=== PATIENT | male | born 1935 | race Caucasian/White ===

== ENCOUNTER 2020-09-21 02:52 | Inpatient (IN) | payer MEDICARE, OTHER ==
[~2020-09-21] VITALS: Ht 160 cm; Wt 75.5 kg
--- NOTE | 2020-09-21 03:01 | NUR ---
PT AAOX1. AZERI SPEAKING. BIBEMS FROM [facility] C/O LOW O2 SAT 75% PER EMS REPORT. PT WAS PALCED ON NON ADAMARIS 10L, SAT 94%. PLACED IN BED 18 ON MONITOR AND PULSE OX. AWAITING MD FOR EVAL AND ORDERS.
[2020-09-21] MEDS ORDERED: LIDOCAINE 2% JEL UROJET 10 ML MM ONE (03:05)
--- NOTE | 2020-09-21 03:11 | NUR ---
LINE ESTABLISHED LAC 20G, BLOOD COLLECTED, SENT TO LAB.
--- NOTE | 2020-09-21 03:14 | NUR ---
YIID SWABBED, SENT TO LAB.
--- NOTE | 2020-09-21 03:15 | NUR ---
URINE COLLECTED, SENT TO LAB.
[2020-09-21] MEDS ORDERED: AZITHROMYCIN 500 MG in IV D5W 250 ML IV ONE (03:30)
[2020-09-21] MEDS ORDERED: CEFTRIAXONE 1GM BAG (ER ONLY) 1 GM/50 ML PIGGYBACK IV ONE (03:30)
[2020-09-21] MEDS ORDERED: AZITHROMYCIN 500 MG VIAL ONE (03:41)
[2020-09-21] MEDS ORDERED: CEFTRIAXONE 1GM BAG (ER ONLY) 50 ML IV ONE (03:41)
[2020-09-21 03:46] LABS: BASOPHILS % (AUTO) 0.2 % (0.0-2.0); HEMATOCRIT 24 % (39-51); HEMOGLOBIN 8.2 g/dL (13.5-17.5); LYMPHOCYTES # (AUTO) 0.2 /CMM (0.8-4.8); LYMPHOCYTES % (AUTO) 3.8 % (20.0-44.0); MEAN CORPUSCULAR HGB CONC 34 g/dl (31.0-36.0); MEAN CORPUSCULAR VOLUME 89 fL (80-96); MONOCYTES # (AUTO) 0.4 /CMM (0.1-1.30); MONOCYTES % (AUTO) 6.2 % (2.0-12.0); NEUTROPHILS # (AUTO) 5.6 /CMM (1.8-8.9); NEUTROPHILS % (AUTO) 89.8 % (43.0-81.0); PLATELET COUNT (AUTO) 102 /CMM (150-450); RED BLOOD CELL COUNT(AUTO) 2.72 MIL/uL (4.5-6.0); WHITE BLOOD COUNT (AUTO) 6.2 K/uL (4.3-11.0)
[2020-09-21 04:09] LABS: ALANINE AMINOTRANSFERASE 109 U/L (12-78); ALBUMIN 2.5 g/dL (3.4-5.0); ALKALINE PHOSPHATASE 110 U/L (46-116); ASPARTATE AMINOTRANSFERASE 177 U/L (15-37); B-TYPE NATRIURETIC PEPTIDE 2142 PG/ML (0-125); BILIRUBIN,DIRECT 0.2 mg/dL (0.0-0.2); BILIRUBIN,TOTAL 0.3 mg/dL (0.2-1.0); CALCIUM, SERUM 7.8 mg/dL (8.5-10.1); CARBON DIOXIDE 19 mmol/L (21-32); CHLORIDE 110 mmol/L (98-107); CREATININE 3.1 mg/dL (0.6-1.3); GLUCOSE 164 mg/dL (74-106); POTASSIUM 4.2 mmol/L (3.5-5.1); SODIUM SERUM 143 mmol/L (136-145); TOTAL PROTEIN, SERUM 6.3 g/dL (6.4-8.2)
[2020-09-21 04:11] LABS: UREA NITROGEN, BLOOD 83 mg/dL (7-18)
[2020-09-21] MEDS ORDERED: ASPIRIN 300 MG/SUPP.RECT RC ONE ×2 (04:11→04:30)
--- NOTE | 2020-09-21 04:20 | NUR ---
Call from lab. Rapid covid positive.
--- NOTE | 2020-09-21 04:33 | NUR ---
PT PLACED ON 4L NC, SAT 93%.
--- NOTE | 2020-09-21 05:11 | NUR ---
PT RESTING COMFORTBALY.
[2020-09-21] MEDS ORDERED: ACETAMINOPHEN 325 MG TABLET PO PRN (05:30)
[2020-09-21] MEDS ORDERED: ALBUTEROL SULFATE 8 GM HFA.AER.AD IH PRN (05:30)
[2020-09-21] MEDS ORDERED: ONDANSETRON HCL/PF 4 MG/2 ML VIAL IVP PRN (05:30)
[2020-09-21 05:58] LABS: BILIRUBIN,URINE NEGATIVE (NEGATIVE); COLOR,URINE YELLOW (YELLOW); LEUKOCYTE ESTERASE ,URINE NEGATIVE (NEGATIVE); NITRITE, URINE NEGATIVE (NEGATIVE); PH,URINE 5.5 (5.0-8.0); PROTEIN,URINE 100 mg/dl (NEGATIVE); UGLUCOSE NEGATIVE (NEGATIVE); UROBILINOGEN,URINE 0.2 EU/dL (0.2)
[2020-09-21 06:40] LABS: BACTERIA,URINE Moderate /HPF (None Seen); SQUAMOUS EPITHELIAL CELL,UR Few /HPF (None Seen); URINE AMORPHOUS URATE Many /HPF (None Seen)
--- NOTE | 2020-09-21 07:11 | NUR ---
PT REMAINS ASLEEP, VSS.
[2020-09-21 08:53] LABS: C-REACTIVE PROTEIN 10.6 mg/dL (0.0-0.9)
--- NOTE | 2020-09-21 09:12 | NUR ---
PATIENT IN BED ASLEEP, EASILY AROUSABLE BY VOICE. HOOKED TO MONITOR. VSS. WILL CONTINUE TO MONITOR ACCORDINGLY
[2020-09-21] MEDS ORDERED: PRED20TA PO (09:31)
[2020-09-21] MEDS ORDERED: BISA10SU61 RC (09:31)
[2020-09-21] MEDS ORDERED: INSU100I26 SQ (09:31)
[2020-09-21] MEDS ORDERED: TAMS-12 PO (09:31)
[2020-09-21] MEDS ORDERED: DOCU-141 PO (09:31)
[2020-09-21] MEDS ORDERED: INSU100I4 SQ (09:31)
[2020-09-21] MEDS ORDERED: NA P133E RC (09:31)
[2020-09-21] MEDS ORDERED: HEPA1DIS12 SUBCUT (09:31)
[2020-09-21] MEDS ORDERED: POLY17PO4 PO (09:31)
[2020-09-21] MEDS ORDERED: CYAN-51 PO (09:31)
[2020-09-21] MEDS ORDERED: ACET325T53 PO (09:31)
[2020-09-21] MEDS ORDERED: ERGO500040 PO (09:31)
[2020-09-21] MEDS ORDERED: AMLO5TAB4 PO (09:31)
[2020-09-21] MEDS ORDERED: ASPI-1169 PO (09:31)
[2020-09-21] MEDS ORDERED: ATOR80TA PO (09:31)
[2020-09-21] MEDS ORDERED: FEBU40TA3 PO (09:31)
[2020-09-21] MEDS ORDERED: LIPA1CAP31 PO (09:31)
[2020-09-21 09:59] LABS: ALANINE AMINOTRANSFERASE 134 U/L (12-78); ALBUMIN 2.4 g/dL (3.4-5.0); ALKALINE PHOSPHATASE 114 U/L (46-116); ASPARTATE AMINOTRANSFERASE 193 U/L (15-37); BILIRUBIN,TOTAL 0.3 mg/dL (0.2-1.0); CARBON DIOXIDE 17 mmol/L (21-32); CHLORIDE 111 mmol/L (98-107); CREATININE 3.1 mg/dL (0.6-1.3); GLUCOSE 160 mg/dL (74-106); MAGNESIUM 2.2 mg/dL (1.8-2.4); PHOSPHORUS 5.5 mg/dL (2.5-4.9); POTASSIUM 4.2 mmol/L (3.5-5.1); SODIUM SERUM 144 mmol/L (136-145); TOTAL PROTEIN, SERUM 6.1 g/dL (6.4-8.2)
[2020-09-21 10:04] LABS: IRON, SERUM 14 ug/dl (50-175); TOTAL IRON BINDING CAPACITY 149 ug/dl (250-450)
[2020-09-21 10:11] LABS: UREA NITROGEN, BLOOD 82 mg/dL (7-18)
[2020-09-21 10:17] LABS: CHOLESTEROL 96 mg/dL (<200); FERRITIN 762 ng/mL (8-388); HDL CHOLESTEROL 39 mg/dL (40-60); LDL 32 mg/dL (0-99); THYROID STIMULATING HORMONE 0.671 uIU/mL (0.358-3.74); TRIGLYCERIDES 140 mg/dL (30-150)
--- NOTE | 2020-09-21 11:16 | NUR ---
PATIENT IN BED ASLEEP, EASILY AROUSABLE BY VOICE. HOOKED TO MONITOR. VSS. WILL CONTINUE TO MONITOR ACCORDINGLY
[2020-09-21] MEDS: DEXAMETHASONE SOD PHOSPHATE 4 MG/ML VIAL IV SCH (12:00)
--- NOTE | 2020-09-21 15:17 | NUR ---
RT AT BEDSIDE, PLACED PATIENT ON HI-FLOW O2, WITH SETTINGS OF 30L AND 80% O2
--- NOTE | 2020-09-21 17:41 | NUR ---
BED 117-2 GIVE REPORT AFTER SHIFT.
--- NOTE | 2020-09-21 18:17 | NUR ---
PT ASLEEP, VSS.
--- NOTE | 2020-09-21 19:00 | NUR ---
NURSING SUP GAVE TELE BED 113-2.
--- NOTE | 2020-09-21 19:22 | NUR ---
CALLED TO GIVE REPORT, UNAVAILABLE.
--- NOTE | 2020-09-21 20:05 | NUR ---
REPORT GIVEN TO JINNY NICHOLSON FOR PAU
--- NOTE | 2020-09-21 20:30 | NUR ---
RN ADMITTING NOTE RECEIVED PATIENT FROM ER VIA COURTNEY ACCOMPANIED BY AGUSTIN NICHOLSON AND 2 OTHER ER STAFF; ADMITTING DIAGNOSIS OF COVID 19 RESPIRATORY PNEUMONIA, AND NSTEMI. PATIENT AWAKE, AO X 1. UPPER SORBIAN SPEAKING, BUT RESPONDS TO SIMPLE TUNISIAN. IN NO S/SX OF ACUTE DISTRESS AT THIS TIME. PATIENT'S BREATHING IS EVEN AND UNLABORED. PATIENT IS ON 60L OF OXYGEN VIA HIGH FLOW NC, SATURATING 91% AT THE MOMENT. PATIENT ON TELE MONITOR READING SR, HR IS 98. NOTED IV SITE ON LAC 20G, FLUSHING AND PATENT, SALINE LOCKED. NO S/S OF INFECTION OR INFILTRATION. PATIENT ON DIAPERS. NOTED SKIN TEAR AT L ARM AND ABRASION AT L HAND. PICTURE TAKEN AND PLACED IN CHART. WOUND CONSULT REQUESTED. PATIENT ON BILATERAL SOFT WRIST RESTRAINTS PER ORDERS, SKIN AND CIRCULATION CHECKED PER PROTOCOL. PATIENT KEPT CLEAN , DRY AND COMFORTABLE. SAFETY MEASURES IMPLEMENTED. PATIENT BED ALARM IS ON. HEAD OF BED ELEVATED. BED IS LOCKED, IN LOWEST POSITION AND SIDE RAILS UP. CALL LIGHT WITHIN REACH OF THE PATIENT. SEIZURE AND ISOLATION PRECAUTIONS IN PLACE. WILL CONTINUE TO MONITOR AND REASSESS FOR ANY CHANGES. WILL ATTEND TO ALL MD ADMITTING ORDERS.
--- NOTE | 2020-09-21 20:34 | NUR ---
PT TRANSFERED PER ACLS PROTOCOL
--- NOTE | 2020-09-21 20:35 | NUR ---
RN NOTE NOTED TEMP OF 99.1. COOLING MEASURES PROVIDED. WILL CONTINUE TO MONITOR TEMP.
[2020-09-21 21:16] VITALS: BP 157/85
[2020-09-21] MEDS: HEPARIN SODIUM, PORCINE 5000 UNITS/1 ML VIAL SQ SCH (21:24)
[2020-09-22] VITALS: BP 145/85
--- NOTE | 2020-09-22 02:31 | NUR ---
RN NOTE NOTED PATIENT DESATING TO 85-86%. RT WAS NOTIFIED. PATIENT WAS PLACED ON 15L VIA NRB IN ADDITION TO HIGH FLOW AT 40 LPM WITH FIO2 OF 100%. PATIENT TOLERATING WELL, SATING AT 96-99%. HOWEVER, PATIENT ATTEMPTING TO PULL OXYGEN EVEN WITH PRESENCE OF RESTRAINTS. CONTINUED TO CLOSELY MONITOR PATIENT.
[2020-09-22] MEDS: AZITHROMYCIN 250 MG TABLET PO SCH (05:40)
[2020-09-22] MEDS: CEFTRIAXONE 1 G in IV D5W 50 ML IV SCH (05:40)
[2020-09-22 07:26] VITALS: BP 103/52
--- NOTE | 2020-09-22 07:47 | NUR ---
PT RECEIVED IN BED, ON BOTH 40L HIGH FLOW AND NON-BREATHER AT 15L, O2 SATURATION 97-98%. NO RESPIRATORY DISTRESS. PT ON BILATERAL SOFT WRIST RESTRAINTS ORDERED.PT ALERT AND ORIENTED X 1. PT ON MONITOR SHOWING SR.PT HAS LAC 20G SALINE LOCKED. BED IN LOCKED LOWEST POSITION, CALL LIGHT WITHIN REACH, ALL SAFETY MEASURES IN PLACE. WILL CONTINUE TO MONITOR CLOSELY
[2020-09-22 08:00] VITALS: BP 171/81
[2020-09-22] MEDS: HEPARIN SODIUM, PORCINE 5000 UNITS/1 ML VIAL SQ SCH ×2 (09:00→20:57)
[2020-09-22] MEDS: ASPIRIN 81 MG TAB.CHEW PO SCH (09:00)
[2020-09-22 09:17] LABS: EOSINOPHILS % (AUTO) 0.2 % (0.0-6.0); HEMATOCRIT 24 % (39-51); HEMOGLOBIN 8.1 g/dL (13.5-17.5); LYMPHOCYTES # (AUTO) 0.1 /CMM (0.8-4.8); LYMPHOCYTES % (AUTO) 1.2 % (20.0-44.0); MEAN CORPUSCULAR HGB CONC 33 g/dl (31.0-36.0); MEAN CORPUSCULAR VOLUME 91 fL (80-96); MONOCYTES # (AUTO) 0.5 /CMM (0.1-1.30); MONOCYTES % (AUTO) 5.4 % (2.0-12.0); NEUTROPHILS % (AUTO) 93.2 % (43.0-81.0); PLATELET COUNT (AUTO) 91 /CMM (150-450); RED BLOOD CELL COUNT(AUTO) 2.68 MIL/uL (4.5-6.0); WHITE BLOOD COUNT (AUTO) 8.6 K/uL (4.3-11.0)
[2020-09-22 09:56] LABS: ALANINE AMINOTRANSFERASE 106 U/L (12-78); ALBUMIN 2.2 g/dL (3.4-5.0); ALKALINE PHOSPHATASE 143 U/L (46-116); ASPARTATE AMINOTRANSFERASE 87 U/L (15-37); BILIRUBIN,TOTAL 0.3 mg/dL (0.2-1.0); CARBON DIOXIDE 15 mmol/L (21-32); CHLORIDE 112 mmol/L (98-107); CREATININE 3.2 mg/dL (0.6-1.3); GLUCOSE 317 mg/dL (74-106); MAGNESIUM 2.3 mg/dL (1.8-2.4); PHOSPHORUS 6.2 mg/dL (2.5-4.9); POTASSIUM 4.9 mmol/L (3.5-5.1); SODIUM SERUM 141 mmol/L (136-145)
[2020-09-22 10:01] LABS: UREA NITROGEN, BLOOD 90 mg/dL (7-18)
[2020-09-22] MEDS: DEXAMETHASONE SOD PHOSPHATE 4 MG/ML VIAL IV SCH (10:08)
--- NOTE | 2020-09-22 10:10 | NUR ---
HEPARIN, ASPIRIN NON-ADMIN, PT PLT 91
[2020-09-22 11:14] LABS: CHOLESTEROL 96 mg/dL (<200); HDL CHOLESTEROL 33 mg/dL (40-60); LDL 26 mg/dL (0-99); THYROID STIMULATING HORMONE 0.543 uIU/mL (0.358-3.74); TRIGLYCERIDES 172 mg/dL (30-150)
[2020-09-22 12:00] VITALS: BP 157/88
[2020-09-22 16:00] VITALS: BP 168/89
--- NOTE | 2020-09-22 19:57 | NUR ---
PT IN BED, AOX1 NEPALI SPEAKING AND CONFUSED. PATIENT ON 40LPM/100% FIO2 AND 15L NONREBREATHER. PATIENT ON MONITOR SHOWING SR AND ST. PT IS BEDREST. PT CARDIAC DIET WITH FEEDER. PT LAC 20G SALINE LOCKED. PER MD CHIANG. PT TO HAVE ACCUCHECKS ACHS, NO INSULIN COVERAGE. BED IN LOCKED LOWEST POSITION, CALL LIGHT WITHIN REACH. ALL SAFETY MEASURES IN PLACE. REPORT GIVEN TO PARUL MAI
[2020-09-22 20:00] VITALS: BP 158/85
--- NOTE | 2020-09-22 20:00 | NUR ---
PT IN BED, AOX1 OMANI SPEAKING AND CONFUSED, PATIENT ON 40LPM/100% FIO2 AND 15L NONREBREATHER, ON BILATERAL WRIST SOFT RESTRAINS, NO CIRCULATION COMPROMISED, PATIENT MOVING AND TRYING REMOVING RESTRAINS AND NRM ALONG WITH HF PATIENT QUICKLY DESATURATES, PRIMARY NURSE LOSE TO PATIENT S ROOM, CLOSING MONITORING PROVIDED, PATIENT ON MONITOR SHOWING SR AND ST, LAC 20G SALINE LOCKED, BED IN LOCKED LOWEST POSITION, CALL LIGHT WITHIN REACH,ALL SAFETY MEASURES IN PLACE, WILL CONTINUE TO MONITOR CLOSELY.
--- NOTE | 2020-09-22 20:59 | NUR ---
HEPARIN, NON-ADMIN, PT PLT 91
[2020-09-23] VITALS (9 sets, daily range): BP systolic 127–167; BP diastolic 69–90
[2020-09-23] MEDS: CEFTRIAXONE 1 G in IV D5W 50 ML IV SCH (04:18)
[2020-09-23] MEDS: AZITHROMYCIN 250 MG TABLET PO SCH (06:05)
--- NOTE | 2020-09-23 06:51 | NUR ---
PT IN BED, AOX1 ENGLISH SPEAKING AND CONFUSED, PATIENT ON 40LPM/100% FIO2 AND 15L NONREBREATHER, ON BILATERAL WRIST SOFT RESTRAINS, NO CIRCULATION COMPROMISED, PATIENT MOVING AND TRYING REMOVING RESTRAINS AND NRM ALONG WITH HF PATIENT QUICKLY DESATURATES, O2 AT THIS TIME 88-90%, PATIENT AT HIGH RISK TO CRASH, BECAUSE DESATURATES QUICKLY, PRIMARY NURSE ALL NIGHT PROVIDING CLOSELY MONITORING, WILL ENDORSE TO ONCOMING NURSE FOR CONTINUITY OF CARE.
--- NOTE | 2020-09-23 07:05 | NUR ---
PT ASLEEP AND SHUFFLING IN BED FREQUENTLY. HOB ELEVATED. HF 40L FIO 100% PLUS NRB MASK 15 L/MIN. RESPIRATIONS EVEN UNLABORED. SKIN WARM AND FLUSHED. NO SIGNS RESPIRATORY DISTRESS. SR 80-120S. L HAND ABRASION AND L ELBOW SKIN TEAR NOTED. RESTRAINTS ORDERED PT AT RISK OF REMOVING TUBING AND OXYGEN EQUIPMENT. MONITORING NEED AND RESPONSE Q1H. L AC IV SALINE LOCKED. MONITORING RESPIRATORY STATUS THROUGHOUT SHIFT. ALL HOSPITAL POLICY SAFETY PRECAUTIONS IMPLEMENTED. RAILS X2 UP, BED LOW LOCKED, HOB ELEVATED, BED LOCKED AND LOW, CALL LIGHT IN REACH, BED ALARM ON.
--- NOTE | 2020-09-23 08:33 | NUR ---
WOUND CARE CONSULT: REVIEWED CHART, NURSING DOCUMENTATION AND PHOTOS WHICH INDICATE SKIN TEARS TO UPPER EXTREMITIES, PRESENT ON ADMISSION. RECOMMENDATIONS MADE FOR SKIN PROTECTION AND WOUND CARE. DISCUSSED WITH NURSING STAFF. PT IS ON [facility] LOW AIRLOSS BED. MD IN AGREEMENT WITH PLAN OF CARE.
[2020-09-23] MEDS: HEPARIN SODIUM, PORCINE 5000 UNITS/1 ML VIAL SQ SCH (09:00)
[2020-09-23] MEDS ORDERED: Z GUARD REMEDY 2 OZ OINT TP PRN (09:00)
--- NOTE | 2020-09-23 09:00 | NUR ---
ORDERED HEPARIN NOT GIVEN PT HAS LOW HGB AND PLATELETS. WILL MONITOR TRENDS AND FOR S/S OF BLEEDING.
[2020-09-23] MEDS: DEXAMETHASONE SOD PHOSPHATE 4 MG/ML VIAL IV SCH (09:15)
[2020-09-23] MEDS: ASPIRIN 81 MG TAB.CHEW PO SCH (09:16)
[2020-09-23] MEDS: Z GUARD REMEDY 2 OZ OINT TP SCH (09:17)
[2020-09-23] MEDS ORDERED: NA PHOS,M-B/NA PHOS,DI-BA 1 EA ENEMA RC PRN (09:30)
[2020-09-23] MEDS ORDERED: BISACODYL SUPP (10 MG) 10 MG/SUPP.RECT SUPP.RECT RC PRN (09:30)
[2020-09-23] MEDS ORDERED: ACETAMINOPHEN 325 MG TABLET PO PRN (09:30)
[2020-09-23] MEDS ORDERED: ERGOCALCIFEROL (VITAMIN D 2) 50,000 UNIT CAPSULE PO SCH (09:30)
[2020-09-23] MEDS: LIPASE/PROTEASE/AMYLASE 1 EACH CAPSULE.DR PO SCH ×2 (12:24→17:14)
[2020-09-23] MEDS: DOCUSATE SODIUM 100 MG CAPSULE PO SCH (17:00)
[2020-09-23 17:07] LABS: ABG BASE EXCESS -12.7 mmol/L; ABG OXYGEN SATURATION 78.8 % (92.0-98.5); ABG PCO2 23.5 mmHg (35.0-45.0); ABG PO2 47.5 mmHg (75.0-100.0); COHb 0.4 % (0.5-1.5); MetHb 0.3 % (0.0-1.5); O2Hb 78.2 % (94.0-97.0); SITE, ABG Right Radial
--- NOTE | 2020-09-23 17:15 | NUR ---
PT REFUSING THE ORDERED COLACE AND PANCRELIPASE. PT UNCOOPERATIVE. PT CONFUSED. ATTEMPTED TO EDUCATE PT ON IMPORTANCE AND PURPOSE. PT CONFUSED. CANNOT COMPREHEND.
[2020-09-23] MEDS: APIXABAN 2.5 MG TABLET PO SCH (17:30)
--- NOTE | 2020-09-23 18:39 | NUR ---
RT INTUBATED PT WITH 7.5CM 23CM AT LIP SECURED WITH ETT TUBE FREIRE AWAITING CHEST XRAY PLACED ON [facility] VENT AC 24 450 +8 100% PER MD PELEG BILATERAL EQUAL BREATH SOUNDS SX CATH PASSSED C02 CHANGED WILL CONT TO MONITOR Addendum: 09/23/20 at 1841 by LINA MENDOZA RT Amended: Links added.
--- NOTE | 2020-09-23 18:42 | NUR ---
UNABLE TO ADMIN ORDERED APIXIBAN PT KP 70-80%. UNCOOPERATIVE AND UNABLE TO FOLLOW COMMAND TO SWALLOW DURING ADMINISTRATION. WILL FOLLOW UP ON PATIENT EDUCATION ON IMPORTANCE AND PURPOSE.
--- NOTE | 2020-09-23 20:00 | NUR ---
PHOTOGRAPHY INSTRUCTOR NOTES RECEIVED PATIENT TRANSFER FROM TELEMETRY, STATUS POST INTUBATION FOR RESPIRATORY FAILURE, COVID-19 POSITIVE. ETT 7.5, 23CM AT LIP LINE, VENT SETTINGS AC 24, TV 450, FIO2 100%, PEEP 8. LEFT AC 20 GAUGE PATENT AND INTACT, NEW RIGHT THUMB 20GAUGE OBTAINED. PEREZ CATHETER INSERTED. CALLED AND SPOKE TO PATIENT'S SON DERICK TO UPDATE THAT THE PATIENT HAS NOW BEEN INTUBATED AND TRANSFERRED UP TO ICU. ANSWERED QUESTIONS ABLE, WILL MONITOR
--- NOTE | 2020-09-23 20:10 | NUR ---
PT TRANSFERED TO ICU WITH RT TO ASSIST. ENDORSED TO ARCELIA VIA PHONE. PT REMAINED STABLE DURING TRANSFER. TELE REMAINED SINUS RHYTHM.
[2020-09-23] MEDS: PROPOFOL 100 ML IV PRN (20:47)
[2020-09-23 20:58] LABS: ABG BASE EXCESS -12.6 mmol/L; ABG OXYGEN SATURATION 95.1 % (92.0-98.5); ABG PH 7.173 (7.350-7.450); ABG PO2 99.7 mmHg (75.0-100.0); AaDO2 571.3 mmHg; COHb 0.1 % (0.5-1.5); MetHb 0.4 % (0.0-1.5); O2Hb 94.6 % (94.0-97.0); PEEP,BG 8 cm H2O; SITE, ABG Right Radial
--- NOTE | 2020-09-23 20:59 | NUR ---
ABG DONE POST INTUBATION. NOTIFIED RN WITH RESULT.
[2020-09-23] MEDS ORDERED: [UNRECOGNIZED DRUG - OTHER] SUBCUT SCH (21:00)
[2020-09-23] MEDS ORDERED: HEPARIN SODIUM PORCINE SUBCUT SCH (21:00)
[2020-09-23] MEDS ORDERED: INSULIN GLARGINE,BASAGLAR 100 UNIT/ML INSULN.PEN SQ SCH (22:00)
[2020-09-23] MEDS ORDERED: Medication Not On Formulary EA (Atorvastatin Calcium (Lipitor) 80 MG) PO SCH (22:00)
--- NOTE | 2020-09-23 22:00 | NUR ---
VACUUM FRAME OPERATOR NOTES GASTRIC ASPIRATE FROM OGT NOTED TO BE DARK RED/BROWN IN COLOR. FINDINGS RELAYED TO LICHA VEGA GLOBAL CLIMATE CHANGE RESEARCHER, NEW ORDERS OBTAINED TO SEND SAMPLE OF GASTRIC CONTENTS FOR OCCULT BLOOD.
--- NOTE | 2020-09-23 22:30 | NUR ---
UI SOFTWARE DEVELOPER NOTES ABG RESULTS RELAYED TO LICHA VEGA SOLAR INSTALLATION MANAGER, NEW ORDER OBTAINED FOR VENT CHANGES. RT KNOWLES AT BEDSIDE, NOTIFIED OF NEW ORDERS FOR VENTILATOR CHANGES
--- NOTE | 2020-09-23 22:33 | NUR ---
RATE CHANGED TO 26 AND VT TO 500 PER WILSTEIN.
[2020-09-23] MEDS: PANTOPRAZOLE 40 MG VIAL IV SCH (23:06)
[2020-09-23] MEDS: ATORVASTATIN 40 MG TABLET PO SCH (23:06)
[2020-09-23] MEDS: INSULIN GLARGINE, 100 UNIT/ML CARTRIDGE SQ SCH (23:35)
[2020-09-24] VITALS (59 sets, daily range): BP systolic 86–152; BP diastolic 46–84
[2020-09-24] MEDS: CEFTRIAXONE 1 G in IV D5W 50 ML IV SCH (04:38)
[2020-09-24 05:08] LABS: HEMATOCRIT 26 % (39-51); HEMOGLOBIN 8.1 g/dL (13.5-17.5); LYMPHOCYTES # (AUTO) 0.1 /CMM (0.8-4.8); LYMPHOCYTES % (AUTO) 2.1 % (20.0-44.0); MEAN CORPUSCULAR HGB CONC 32 g/dl (31.0-36.0); MEAN CORPUSCULAR VOLUME 94 fL (80-96); MONOCYTES # (AUTO) 0.3 /CMM (0.1-1.30); NEUTROPHILS # (AUTO) 5.3 /CMM (1.8-8.9); NEUTROPHILS % (AUTO) 92.9 % (43.0-81.0); PLATELET COUNT (AUTO) 84 /CMM (150-450); RED BLOOD CELL COUNT(AUTO) 2.73 MIL/uL (4.5-6.0); WHITE BLOOD COUNT (AUTO) 5.7 K/uL (4.3-11.0)
[2020-09-24 05:26] LABS: CALCIUM, SERUM 8.9 mg/dL (8.5-10.1); CARBON DIOXIDE 18 mmol/L (21-32); CHLORIDE 118 mmol/L (98-107); CREATININE 4.7 mg/dL (0.6-1.3); POTASSIUM 5.8 mmol/L (3.5-5.1); SODIUM SERUM 151 mmol/L (136-145)
[2020-09-24 05:40] LABS: EOSINOPHILS % (MANUAL) 2 % (0-4); LYMPHOCYTES % (MANUAL) 6 % (16-48); MONOCYTES % (MANUAL) 8 % (0-11.0); NEUTROPHILS % (MANUAL) 84 (42-76)
[2020-09-24 05:54] LABS: GLUCOSE 427 mg/dL (74-106); UREA NITROGEN, BLOOD 139 mg/dL (7-18)
[2020-09-24] MEDS: AZITHROMYCIN 250 MG TABLET PO SCH (06:08)
[2020-09-24] MEDS ORDERED: DEXTROSE 50%-WATER 50 ML DISP.SYRIN IV PRN (06:30)
[2020-09-24] MEDS: INSULIN REGULAR, HUMAN 100 UNIT/ML 3 ML VIAL SQ PRN ×4 (07:34→23:16)
--- NOTE | 2020-09-24 07:35 | NUR ---
ICU/RN PT IS INTUBATED AC MODE,SAT O2-98%.V/S STABLE,AFEBRILE.SEDATED ON PROPOFOL.F/C DRAINING WITH MINIMAL AMOUNT OF URINE. LEFT ARM SWOLLEN.SUCTION PROVIDED.REPOSITION FOR COMFORT.
--- NOTE | 2020-09-24 08:12 | NUR ---
VENT CHANGES BELOW PER DR. ROBERT: FIO2 50% PEEP +5 RN NOTIFIED ON VENT CHANGES. Addendum: 09/24/20 at 0812 by JAYE SNYDER RT Amended: Links added.
[2020-09-24] MEDS: POLYETHYLENE GLYCOL 3350 17 GM POWD.PACK PO SCH (08:48)
[2020-09-24] MEDS: CYANOCOBALAMIN 500 MCG TABLET PO SCH (08:48)
[2020-09-24] MEDS: PANTOPRAZOLE 40 MG VIAL IV SCH ×2 (08:48→22:29)
[2020-09-24] MEDS: ASPIRIN 81 MG TAB.CHEW PO SCH (08:49)
[2020-09-24] MEDS: AMLODIPINE BESYLATE 5 MG TABLET PO SCH (08:50)
[2020-09-24] MEDS: Z GUARD REMEDY 2 OZ OINT TP SCH (08:50)
[2020-09-24] MEDS: DEXAMETHASONE SOD PHOSPHATE 4 MG/ML VIAL IV SCH (08:51)
[2020-09-24] MEDS: TAMSULOSIN 0.4 MG CAP.SR.24H PO SCH (08:51)
[2020-09-24] MEDS: LIPASE/PROTEASE/AMYLASE 1 EACH CAPSULE.DR PO SCH ×3 (08:51→18:02)
[2020-09-24] MEDS: DOCUSATE SODIUM 100 MG CAPSULE PO SCH ×2 (08:51→18:02)
[2020-09-24] MEDS: APIXABAN 2.5 MG TABLET PO SCH ×2 (08:54→18:06)
[2020-09-24] MEDS: PROPOFOL 100 ML IV PRN ×2 (08:55→22:42)
--- NOTE | 2020-09-24 08:58 | NUR ---
placed bacck to fio2 60% and peep +8 due to 75% spo2. RN and dr. hoffman notified. Addendum: 09/24/20 at 0859 by JAYE SNYDER RT Amended: Links added.
[2020-09-24] MEDS ORDERED: ASPIRIN 81 MG TAB.CHEW PO SCH (09:00)
[2020-09-24] MEDS ORDERED: Medication Not On Formulary EA (Febuxostat 40 MG) PO SCH (09:00)
--- NOTE | 2020-09-24 09:00 | NUR ---
ICU/RN DUE MEDS ARE GIVEN ORDERED.LABS REVIEW.MD NOTIFIED. SEDATION VACATION PROVIDED.
[2020-09-24] MEDS ORDERED: IV D5/0.45 NACL 1,000 ML IV ONE (10:45)
[2020-09-24] MEDS: BLOOD SUGAR DIAGNOSTIC 1 EACH STRIP IN SCH ×3 (11:12→23:18)
[2020-09-24 11:36] LABS: ABG BASE EXCESS -10.6 mmol/L; ABG PH 7.288 (7.350-7.450); ABG PO2 91.8 mmHg (75.0-100.0); AaDO2 300.8 mmHg; COHb 0.5 % (0.5-1.5); MetHb 0.3 % (0.0-1.5); O2Hb 95.2 % (94.0-97.0); PEEP,BG 8 cm H2O; SITE, ABG Right Radial; VT, ABG 500 mL
--- NOTE | 2020-09-24 11:49 | NUR ---
fio2 decreased from 60% to 50% fio2 per dr. Mchugh. Addendum: 09/24/20 at 1150 by JAYE SNYDER RT Amended: Links added.
[2020-09-24] MEDS ORDERED: ETOMIDATE 2 MG/ML VIAL IV ONE (12:41)
[2020-09-24] MEDS ORDERED: SUCCINYLCHOLINE CHLORIDE 20 MG/ML VIAL IJ ONE (12:41)
[2020-09-24] MEDS ORDERED: LIDOCAINE HCL 20 MG/ML ML MM ONE (12:41)
--- NOTE | 2020-09-24 15:17 | NUR ---
vent changes below made per dr. hoffman: rate 32 vt 400 ml Addendum: 09/24/20 at 1518 by JAYE SNYDER RT Amended: Links added.
[2020-09-24] MEDS ORDERED: CEFEPIME 1 GM VIAL IM SCH (17:00)
[2020-09-24] MEDS ORDERED: VANCOMYCIN 1 GM in IV D5W 250ml IV ONE (17:00)
--- NOTE | 2020-09-24 17:45 | NUR ---
ICU/RN PM CARE PROVIDED.DUE MEDS ARE GIVEN ORDERED.NEW RIGHT UPPER ARM PICC LINE INSERTED ORDERED.NEW RIGHT FEMORAL HD CATH INSERTED. HD IS GOING TO BE 09/25/20.SUCTION PROVIDED.REPOSITION FOR COMFORT.
[2020-09-24] MEDS: CEFEPIME 1 GM in IV D5W 50 ML IV SCH (18:01)
[2020-09-24] MEDS: NEPRO 1,000 ML BOTTLE GT PRN (18:03)
[2020-09-24] MEDS: ATORVASTATIN 40 MG TABLET PO SCH (22:29)
[2020-09-24] MEDS: INSULIN GLARGINE, 100 UNIT/ML CARTRIDGE SQ SCH (23:18)
[2020-09-25] VITALS (90 sets, daily range): BP systolic 66–144; BP diastolic 40–80
[2020-09-25 04:14] LABS: BASOPHILS % (AUTO) 0.1 % (0.0-2.0); HEMATOCRIT 21 % (39-51); LYMPHOCYTES # (AUTO) 0.2 /CMM (0.8-4.8); LYMPHOCYTES % (AUTO) 2.8 % (20.0-44.0); MEAN CORPUSCULAR HGB CONC 33 g/dl (31.0-36.0); MEAN CORPUSCULAR VOLUME 92 fL (80-96); MONOCYTES # (AUTO) 0.2 /CMM (0.1-1.30); NEUTROPHILS # (AUTO) 5.4 /CMM (1.8-8.9); NEUTROPHILS % (AUTO) 93.1 % (43.0-81.0); PLATELET COUNT (AUTO) 72 /CMM (150-450); RED BLOOD CELL COUNT(AUTO) 2.32 MIL/uL (4.5-6.0); WHITE BLOOD COUNT (AUTO) 5.7 K/uL (4.3-11.0)
[2020-09-25 04:41] LABS: CALCIUM, SERUM 8.2 mg/dL (8.5-10.1); CARBON DIOXIDE 15 mmol/L (21-32); CHLORIDE 119 mmol/L (98-107); CREATININE 5.4 mg/dL (0.6-1.3); GLUCOSE 216 mg/dL (74-106); POTASSIUM 5.8 mmol/L (3.5-5.1); SODIUM SERUM 151 mmol/L (136-145)
[2020-09-25 05:03] LABS: EOSINOPHILS % (MANUAL) 2 % (0-4); LYMPHOCYTES % (MANUAL) 4 % (16-48); MONOCYTES % (MANUAL) 8 % (0-11.0); NEUTROPHILS % (MANUAL) 86 (42-76)
[2020-09-25 05:14] LABS: PHOSPHORUS 8.3 mg/dL (2.5-4.9); UREA NITROGEN, BLOOD 163 mg/dL (7-18)
[2020-09-25] MEDS: AZITHROMYCIN 250 MG TABLET PO SCH ×2 (06:19→09:47)
[2020-09-25] MEDS: BLOOD SUGAR DIAGNOSTIC 1 EACH STRIP IN SCH ×3 (06:22→18:03)
[2020-09-25] MEDS: INSULIN REGULAR, HUMAN 100 UNIT/ML 3 ML VIAL SQ PRN ×2 (06:32→18:06)
[2020-09-25] MEDS: LIPASE/PROTEASE/AMYLASE 1 EACH CAPSULE.DR PO SCH ×3 (08:00→17:40)
[2020-09-25] MEDS: PROPOFOL 100 ML IV PRN ×2 (08:08→15:34)
[2020-09-25] MEDS ORDERED: VANCOMYCIN POST DIALYSIS 500MG IV PRN ×2 (09:00)
[2020-09-25] MEDS: AMLODIPINE BESYLATE 5 MG TABLET PO SCH (09:00)
[2020-09-25] MEDS: POLYETHYLENE GLYCOL 3350 17 GM POWD.PACK PO SCH (09:44)
[2020-09-25] MEDS: DEXAMETHASONE SOD PHOSPHATE 4 MG/ML VIAL IV SCH (09:44)
[2020-09-25] MEDS: CYANOCOBALAMIN 500 MCG TABLET PO SCH (09:44)
[2020-09-25] MEDS: APIXABAN 2.5 MG TABLET PO SCH ×2 (09:46→17:00)
[2020-09-25] MEDS: ASPIRIN 81 MG TAB.CHEW PO SCH (09:47)
[2020-09-25] MEDS: DOCUSATE SODIUM 100 MG CAPSULE PO SCH ×2 (09:47→17:40)
[2020-09-25] MEDS: TAMSULOSIN 0.4 MG CAP.SR.24H PO SCH (09:47)
[2020-09-25] MEDS: Z GUARD REMEDY 2 OZ OINT TP SCH (09:48)
[2020-09-25] MEDS: NOREPINEPHRINE 8 MG in IV NS 0.9% 242 ML IV PRN ×2 (11:30→21:49)
[2020-09-25] MEDS: FAMOTIDINE/PF INJ 20 MG/2 ML VIAL IV SCH ×2 (12:10→21:44)
--- NOTE | 2020-09-25 12:30 | NUR ---
IRRIGATOR NOTES REGULAR INSULIN 8 UNITS GIVEN ORDERED, WITNESSED BY BHARAT PITTMAN . BLOOD SUGAR RESULT AT 1218 - [phone].
[2020-09-25] MEDS ORDERED: VANCOMYCIN 1 GM in IV D5W 250 ML IV ONE (17:00)
[2020-09-25] MEDS: CEFEPIME 1 GM in IV D5W 50 ML IV SCH (17:12)
--- NOTE | 2020-09-25 19:30 | NUR ---
AEROPHYSICS ENGINEER RCD PT COVID PNA PT SEDATED ON PROPFOL 50 MCG/KG/MIN TO MAINTAIN RESP RATE. SB/NSR ON MONITOR. INTUBATED 7.5 @ 23 W/VENT SETTINGS AC 32 400 50% +10; PT NOTED TO HAVE LOW SATURATIONS; RT AT BEDSIDE. OG TUBE W.ORDER FOR NEPRO @ 30 ML/HR. LEFT FOREARM SKIN TEAR W/DRESSING IN PLACE/.PER REPORT NO BLOOD TO BE GIVEN.
--- NOTE | 2020-09-25 19:36 | NUR ---
PT REMAINS SEDATED, IN STABLE CONDITION. ENDORSED TO NEXT SHIFT.
[2020-09-25] MEDS: ATORVASTATIN 40 MG TABLET PO SCH (21:44)
[2020-09-26] VITALS (94 sets, daily range): BP systolic 94–149; BP diastolic 42–70
[2020-09-26] MEDS: BLOOD SUGAR DIAGNOSTIC 1 EACH STRIP IN SCH ×5 (00:34→23:00)
[2020-09-26] MEDS: NEPRO 1,000 ML BOTTLE GT PRN (00:34)
[2020-09-26] MEDS: INSULIN REGULAR, HUMAN 100 UNIT/ML 3 ML VIAL SQ PRN ×5 (00:47→23:00)
[2020-09-26] MEDS: INSULIN GLARGINE, 100 UNIT/ML CARTRIDGE SQ SCH ×2 (00:48→22:59)
[2020-09-26] MEDS: PROPOFOL 100 ML IV PRN ×4 (01:41→21:19)
[2020-09-26 04:50] LABS: LYMPHOCYTES # (AUTO) 0.1 /CMM (0.8-4.8); LYMPHOCYTES % (AUTO) 1.3 % (20.0-44.0); MEAN CORPUSCULAR HGB CONC 34 g/dl (31.0-36.0); MEAN CORPUSCULAR VOLUME 89 fL (80-96); MONOCYTES # (AUTO) 0.3 /CMM (0.1-1.30); MONOCYTES % (AUTO) 3.1 % (2.0-12.0); NEUTROPHILS # (AUTO) 10.4 /CMM (1.8-8.9); NEUTROPHILS % (AUTO) 95.6 % (43.0-81.0); PLATELET COUNT (AUTO) 66 /CMM (150-450); RED BLOOD CELL COUNT(AUTO) 2.01 MIL/uL (4.5-6.0); WHITE BLOOD COUNT (AUTO) 10.8 K/uL (4.3-11.0)
[2020-09-26] MEDS ORDERED: VANCOMYCIN 500 MG in IV D5W 100 ML IV PRN (05:00)
[2020-09-26 05:02] LABS: HEMATOCRIT 18 % (39-51); HEMOGLOBIN 6.1 g/dL (13.5-17.5)
[2020-09-26 05:09] LABS: CALCIUM, SERUM 7.5 mg/dL (8.5-10.1); CARBON DIOXIDE 26 mmol/L (21-32); CHLORIDE 110 mmol/L (98-107); GLUCOSE 246 mg/dL (74-106); MAGNESIUM 2.4 mg/dL (1.8-2.4); POTASSIUM 4.3 mmol/L (3.5-5.1); SODIUM SERUM 147 mmol/L (136-145)
[2020-09-26 05:10] LABS: UREA NITROGEN, BLOOD 111 mg/dL (7-18)
[2020-09-26 05:47] LABS: LYMPHOCYTES % (MANUAL) 3 % (16-48); MONOCYTES % (MANUAL) 2 % (0-11.0); NEUTROPHILS % (MANUAL) 95 (42-76)
--- NOTE | 2020-09-26 07:15 | NUR ---
PT SEDATED W HOB ELEVATED. VENT SETTINGS PRESCRIBED. TOLERATING LEVO AND PROPOFOL WITH PT NO SOB OR RESP DISTRESS AND SEDATED NOT FIGHTING VENT. MD AWARE OF HGB LEVEL. WILL OBTAIN CONSENT FROM SON. OGT PLACEMENT CHECKED AUSCULATED. PT SHOWS NO SIGNS OF DISTRESS. WILL MONITOR HGB CLOSELY, SIGNS OF BLEEDING, AND REPORT TO MD NEEDED. ALL HOSPITAL POLICY SAFETY PRECAUTIONS IMPLEMENTED. MONITORING SEDATION AND VS CLOSELY.
--- NOTE | 2020-09-26 07:50 | NUR ---
OBTAINED CONSENT FOR BLOOD TRANFUSION VIA PHONE WITH PATIENT'S SON DERICK. WITNESSED Abdiaziz SILVESTRE RN. TWO RN WITNESSES.
[2020-09-26 08:17] LABS: ABG BASE EXCESS -3.7 mmol/L; ABG OXYGEN SATURATION 89.9 % (92.0-98.5); ABG PCO2 33.6 mmHg (35.0-45.0); ABG PH 7.405 (7.350-7.450); ABG PO2 61.8 mmHg (75.0-100.0); AaDO2 256.9 mmHg; COHb 0.1 % (0.5-1.5); MetHb 0.7 % (0.0-1.5); O2Hb 89.2 % (94.0-97.0); SITE, ABG Right Radial; VENT MODE, BG AC 32 400 +8 50%
[2020-09-26] MEDS: POLYETHYLENE GLYCOL 3350 17 GM POWD.PACK PO SCH (08:35)
[2020-09-26] MEDS: LIPASE/PROTEASE/AMYLASE 1 EACH CAPSULE.DR PO SCH ×3 (08:35→17:42)
[2020-09-26] MEDS: CYANOCOBALAMIN 500 MCG TABLET PO SCH (08:36)
[2020-09-26] MEDS: FAMOTIDINE/PF INJ 20 MG/2 ML VIAL IV SCH ×2 (08:37→21:58)
[2020-09-26] MEDS: DOCUSATE SODIUM 100 MG CAPSULE PO SCH ×2 (08:37→17:42)
[2020-09-26] MEDS: DEXAMETHASONE SOD PHOSPHATE 4 MG/ML VIAL IV SCH (08:37)
[2020-09-26] MEDS: TAMSULOSIN 0.4 MG CAP.SR.24H PO SCH (08:37)
[2020-09-26] MEDS: Z GUARD REMEDY 2 OZ OINT TP SCH (08:37)
[2020-09-26] MEDS: ASPIRIN 81 MG TAB.CHEW PO SCH (09:00)
[2020-09-26] MEDS: APIXABAN 2.5 MG TABLET PO SCH (09:00)
[2020-09-26] MEDS: AMLODIPINE BESYLATE 5 MG TABLET PO SCH (09:00)
--- NOTE | 2020-09-26 09:00 | NUR ---
MD AWARE OF LOW HGB. AWAITING BLOOD TRANFUSION OF 1 UNIT PRBCS. HELD THE ORDERED ASPIRIN AND ELIQUIS. HELD NORVASC BP CONTROLLED WITH THE ORDERED LEVOPHED.
[2020-09-26] MEDS: NOREPINEPHRINE 8 MG in IV NS 0.9% 242 ML IV PRN (14:00)
[2020-09-26] MEDS: CEFEPIME 1 GM in IV D5W 50 ML IV SCH (17:42)
--- NOTE | 2020-09-26 18:58 | NUR ---
PT SEDATED W HOB ELEVATED. VENT SETTINGS PRESCRIBED. TOLERATING LEVO AND PROPOFOL WITH PT NO SOB OR RESP DISTRESS AND SEDATED NOT FIGHTING VENT. OGT PLACEMENT CHECKED AUSCULATED. PT SHOWS NO SIGNS OF DISTRESS. MONITORED HGB CLOSELY, SIGNS OF BLEEDING, AND REPORTED TO MD NEEDED. 700 ML REMOVED FROM DIALYSIS AND 1 UNIT ADMINISTERED PRBC ORDERED WITH NO COMPLICATIONS AND VS REMAINED STABLE. ALL HOSPITAL POLICY SAFETY PRECAUTIONS IMPLEMENTED. MONITORED SEDATION AND VS CLOSELY. WILL ENDORSE TO PM RN. TURNED Q2H AND ELEVATED EXTREMITIES. ORDERS IMPLEMENTED AND MD MADE AWARE OF UPDATES.
[2020-09-26] MEDS: ATORVASTATIN 40 MG TABLET PO SCH (21:58)
[2020-09-27] VITALS (70 sets, daily range): BP systolic 80–156; BP diastolic 36–65
[2020-09-27] MEDS: PROPOFOL 100 ML IV PRN ×3 (02:38→16:55)
[2020-09-27 05:59] LABS: BASOPHILS % (AUTO) 0.1 % (0.0-2.0); EOSINOPHILS % (AUTO) 0.6 % (0.0-6.0); LYMPHOCYTES # (AUTO) 0.2 /CMM (0.8-4.8); LYMPHOCYTES % (AUTO) 3.8 % (20.0-44.0); MEAN CORPUSCULAR HGB CONC 35 g/dl (31.0-36.0); MEAN CORPUSCULAR VOLUME 88 fL (80-96); MONOCYTES # (AUTO) 0.2 /CMM (0.1-1.30); MONOCYTES % (AUTO) 4.5 % (2.0-12.0); NEUTROPHILS # (AUTO) 4.8 /CMM (1.8-8.9); RED BLOOD CELL COUNT(AUTO) 2.19 MIL/uL (4.5-6.0); WHITE BLOOD COUNT (AUTO) 5.3 K/uL (4.3-11.0)
[2020-09-27 06:00] LABS: HEMOGLOBIN 6.7 g/dL (13.5-17.5)
[2020-09-27 06:01] LABS: HEMATOCRIT 19 % (39-51); PLATELET COUNT (AUTO) 38 /CMM (150-450)
[2020-09-27 06:16] LABS: CALCIUM, SERUM 7.3 mg/dL (8.5-10.1); CARBON DIOXIDE 27 mmol/L (21-32); CHLORIDE 106 mmol/L (98-107); CREATININE 3.3 mg/dL (0.6-1.3); GLUCOSE 257 mg/dL (74-106); PHOSPHORUS 5.9 mg/dL (2.5-4.9); POTASSIUM 4.8 mmol/L (3.5-5.1); SODIUM SERUM 143 mmol/L (136-145)
[2020-09-27 06:22] LABS: MAGNESIUM 2.2 mg/dL (1.8-2.4)
[2020-09-27 06:24] LABS: UREA NITROGEN, BLOOD 83 mg/dL (7-18)
[2020-09-27 06:34] LABS: EOSINOPHILS % (MANUAL) 3 % (0-4); LYMPHOCYTES % (MANUAL) 6 % (16-48); MONOCYTES % (MANUAL) 5 % (0-11.0); NEUTROPHILS % (MANUAL) 86 (42-76)
[2020-09-27] MEDS: BLOOD SUGAR DIAGNOSTIC 1 EACH STRIP IN SCH ×3 (06:53→17:27)
[2020-09-27] MEDS: INSULIN REGULAR, HUMAN 100 UNIT/ML 3 ML VIAL SQ PRN ×2 (07:02→17:30)
[2020-09-27] MEDS: LIPASE/PROTEASE/AMYLASE 1 EACH CAPSULE.DR PO SCH ×3 (08:08→17:27)
[2020-09-27] MEDS: ASPIRIN 81 MG TAB.CHEW PO SCH (08:08)
[2020-09-27 08:32] LABS: ABG BASE EXCESS -1.5 mmol/L; ABG OXYGEN SATURATION 90.5 % (92.0-98.5); ABG PCO2 35.3 mmHg (35.0-45.0); ABG PH 7.424 (7.350-7.450); ABG PO2 61.5 mmHg (75.0-100.0); AaDO2 255.3 mmHg; MetHb 0.3 % (0.0-1.5); O2Hb 89.3 % (94.0-97.0); PEEP,BG 8 cm H2O; SITE, ABG Right Radial; VENT MODE, BG AC 50%; VT, ABG 400 mL
[2020-09-27] MEDS: AMLODIPINE BESYLATE 5 MG TABLET PO SCH (09:00)
[2020-09-27] MEDS: DOCUSATE SODIUM 100 MG CAPSULE PO SCH ×2 (09:00→16:46)
[2020-09-27] MEDS: TAMSULOSIN 0.4 MG CAP.SR.24H PO SCH (09:28)
[2020-09-27] MEDS: DEXAMETHASONE SOD PHOSPHATE 4 MG/ML VIAL IV SCH (09:28)
[2020-09-27] MEDS: FAMOTIDINE/PF INJ 20 MG/2 ML VIAL IV SCH ×2 (09:28→21:20)
[2020-09-27] MEDS: POLYETHYLENE GLYCOL 3350 17 GM POWD.PACK PO SCH (09:29)
[2020-09-27] MEDS: CYANOCOBALAMIN 500 MCG TABLET PO SCH (09:29)
[2020-09-27] MEDS: Z GUARD REMEDY 2 OZ OINT TP SCH (09:29)
[2020-09-27] MEDS: NEPRO 1,000 ML BOTTLE GT PRN (12:28)
[2020-09-27] MEDS: CEFEPIME 1 GM in IV D5W 50 ML IV SCH (16:15)
--- NOTE | 2020-09-27 16:47 | NUR ---
DIMPLING MACHINE OPERATOR RCD PT W/DX COVID PNA. PT IS SEDATED ON PROPOFOL @ 40 MCG/KG/MIN INTUBATED 7.5 @ 23 W/VENT SETTINGS AC 32 400 50% +10. MARIA ALEJANDRA; 39 NON SUSTAINED ON MONITOR. PT GIVEN ONE UNIT PRBC FOR HG 6.1; CT ABD/PELVIS PENDING GI CONSULT W/DR FONG. HD DONE TODAY. PT ON/OFF LEVOPHED THROUGH OUT THE DAY.
[2020-09-27] MEDS ORDERED: VANCOMYCIN 1 GM in IV D5W 250 ML IV ONE (17:00)
--- NOTE | 2020-09-27 18:46 | NUR ---
FLIGHT AGENT RCD CALL FROM DR FONG; UPDATED ON PT CONDITION.
--- NOTE | 2020-09-27 20:00 | NUR ---
Received patient intubated on full vent support and sedated on Diprivan gtt. at 35 mcg via KASHMIR PICC LINE and site intact.Patient hypothermic.Temp 95.Kept warm with warm blanket.OGT placement verified no residual noted.FC to gravity drainage.No acute distress noted.Turned and repositioned.
[2020-09-27] MEDS: ATORVASTATIN 40 MG TABLET PO SCH (21:20)
[2020-09-27] MEDS: INSULIN GLARGINE, 100 UNIT/ML CARTRIDGE SQ SCH (21:40)
[2020-09-28] VITALS (94 sets, daily range): BP systolic 89–155; BP diastolic 39–70
--- NOTE | 2020-09-28 | NUR ---
FSBS monitored Q 6 hrs with coverage per sliding scale.Latest temp 96.3.Continued with Kati Maynard.Turned and repositioned.
[2020-09-28] MEDS: BLOOD SUGAR DIAGNOSTIC 1 EACH STRIP IN SCH ×4 (00:08→17:14)
[2020-09-28] MEDS: INSULIN REGULAR, HUMAN 100 UNIT/ML 3 ML VIAL SQ PRN ×4 (00:13→17:21)
[2020-09-28] MEDS: PROPOFOL 100 ML IV PRN ×5 (00:35→20:30)
[2020-09-28] MEDS: NOREPINEPHRINE 8 MG in IV NS 0.9% 242 ML IV PRN ×2 (03:07→14:17)
[2020-09-28] MEDS ORDERED: IV NS 0.9% 250 ML IV ONE (03:30)
[2020-09-28 05:14] LABS: BASOPHILS % (AUTO) 0.1 % (0.0-2.0); EOSINOPHILS % (AUTO) 1.8 % (0.0-6.0); HEMATOCRIT 23 % (39-51); HEMOGLOBIN 8.2 g/dL (13.5-17.5); LYMPHOCYTES # (AUTO) 0.3 /CMM (0.8-4.8); LYMPHOCYTES % (AUTO) 3.4 % (20.0-44.0); MEAN CORPUSCULAR HGB CONC 35 g/dl (31.0-36.0); MEAN CORPUSCULAR VOLUME 88 fL (80-96); MONOCYTES # (AUTO) 0.3 /CMM (0.1-1.30); MONOCYTES % (AUTO) 3.6 % (2.0-12.0); NEUTROPHILS # (AUTO) 8.8 /CMM (1.8-8.9); NEUTROPHILS % (AUTO) 91.1 % (43.0-81.0); RED BLOOD CELL COUNT(AUTO) 2.64 MIL/uL (4.5-6.0); WHITE BLOOD COUNT (AUTO) 9.6 K/uL (4.3-11.0)
[2020-09-28 05:18] LABS: PLATELET COUNT (AUTO) 43 /CMM (150-450)
[2020-09-28 05:22] LABS: CARBON DIOXIDE 24 mmol/L (21-32); CHLORIDE 102 mmol/L (98-107); CREATININE 3.3 mg/dL (0.6-1.3); GLUCOSE 249 mg/dL (74-106); MAGNESIUM 2.1 mg/dL (1.8-2.4); PHOSPHORUS 5.6 mg/dL (2.5-4.9); POTASSIUM 4.5 mmol/L (3.5-5.1); SODIUM SERUM 135 mmol/L (136-145); UREA NITROGEN, BLOOD 73 mg/dL (7-18)
[2020-09-28] MEDS ORDERED: VANCOMYCIN 500 MG in IV D5W 100 ML IV PRN (06:00)
[2020-09-28 06:24] LABS: BAND % (MANUAL) 6 % (0.0-5.0); EOSINOPHILS % (MANUAL) 2 % (0-4); LYMPHOCYTES % (MANUAL) 3 % (16-48); METAMYELOCYTES % 1 % (0-0); MONOCYTES % (MANUAL) 4 % (0-11.0); MYELOCYTES % 1 % (0-0); NEUTROPHILS % (MANUAL) 83 (42-76)
--- NOTE | 2020-09-28 07:30 | NUR ---
RN OPENING NOTES RECEIVED PATIENT IN BED, SEATED, ON [facility] VENT, TOLERATING WELL, SPO2 IS 98% AT THIS TIME, NO SOB OR DISTRESS NOTED, PATIENT IS RESTING COMFORTABLY, MONITORING SEDATION RATE Q15MIN, SB RATE OF 50-60 ON TELE-MONITOR, ORAL GASTRIC TUBE NOTED, RUNNING NEPRO FEEDING FORMULA @ 30CC/HR, TOLERATING WELL, NO RESIDUAL NOTED, FLUSHED AND AUSCULTATE, FOR PLACEMENT , IV LINE NOTED ON L AC G20, INTACT AND FLUSHED, AND PICC LINE ON R UA. SAFETY MEASURES IN PLACE IN PLACE, BED IS LOCKED, LOWEST POSITION, CALL LIGHT IN REACH, HOB ELEVATED, ISOLATION MEASURES FOR COVID IN PLACE, WILL CONT TO MONITOR
--- NOTE | 2020-09-28 07:45 | NUR ---
Patient resting in no acute distress.All needs met.Report given to day shift RN.
[2020-09-28] MEDS: DEXAMETHASONE SOD PHOSPHATE 4 MG/ML VIAL IV SCH (09:02)
[2020-09-28] MEDS: DOCUSATE SODIUM 100 MG CAPSULE PO SCH ×2 (09:03→17:00)
[2020-09-28] MEDS: LIPASE/PROTEASE/AMYLASE 1 EACH CAPSULE.DR PO SCH ×3 (09:03→17:15)
[2020-09-28] MEDS: POLYETHYLENE GLYCOL 3350 17 GM POWD.PACK PO SCH (09:04)
[2020-09-28] MEDS: TAMSULOSIN 0.4 MG CAP.SR.24H PO SCH (09:04)
[2020-09-28] MEDS: CYANOCOBALAMIN 500 MCG TABLET PO SCH (09:04)
[2020-09-28] MEDS: FAMOTIDINE/PF INJ 20 MG/2 ML VIAL IV SCH ×2 (09:04→21:52)
[2020-09-28] MEDS: Z GUARD REMEDY 2 OZ OINT TP SCH (09:04)
[2020-09-28 09:07] LABS: ABG BASE EXCESS -3.1 mmol/L; ABG OXYGEN SATURATION 96.4 % (92.0-98.5); ABG PCO2 31.8 mmHg (35.0-45.0); ABG PH 7.427 (7.350-7.450); ABG PO2 92.7 mmHg (75.0-100.0); MetHb 0.3 % (0.0-1.5); O2Hb 94.2 % (94.0-97.0); PEEP,BG 8 cm H2O; SITE, ABG Right Radial; VENT MODE, BG AC 50%; VT, ABG 400 mL
--- NOTE | 2020-09-28 09:30 | NUR ---
Per Dr Jackson, no sedation vacation for patient today
--- NOTE | 2020-09-28 11:11 | NUR ---
IC RN NOTES Patient rceived in bed sedation. Patient is on Propofol at 35 mcg/kg/min and levophed at 0.03 mcg/kg/min. Patient's head of bed kept elevated for aspiration precaution. No distress noted. Orogastric tube checked for placement and patency. Simpson cath intact and hanging to gravity with clear yellow urine draining. IV Picc line to right upper arm patent with no s/s of infection noted. Will continue to monitor. Bed is in the lowest position.
[2020-09-28 12:40] LABS: D-DIMER 17.27 mg/L(FEU (0.17-0.50)
[2020-09-28] MEDS: NEPRO 1,000 ML BOTTLE GT PRN (14:58)
--- NOTE | 2020-09-28 16:00 | NUR ---
Severe diarrhea during the shift, will hold Colace
[2020-09-28] MEDS: CEFEPIME 1 GM in IV D5W 50 ML IV SCH (17:08)
--- NOTE | 2020-09-28 18:42 | NUR ---
RN CLOSING NOTES Patient continues to be sedated on Levophed and Diprivan. No distress noted. Patient kept clean and dry. Simpson cath intact and hanging to gravity with urine output of 50 cc. HOB kept elevated. Orogastric tube intact and patent. Will endorse to next shift for PAU.
--- NOTE | 2020-09-28 19:10 | NUR ---
PROGRAM CLERK OPENING NOTES: Rec'd pt in bed, intubated, 7.5/23cm at the lip and sedated. Tolerating vent settings well. No resp distress noted. SB on tele monitor. OGT in place patent and infusing Nepro at 30ml/hr. LAC #20 and KASHMIR PICC line patent and infusing Dip at 355mcg/kg/min and Levo at 0.03mcg/kg/min. Will titrate per protocol. Bilateral soft wrist restraints in place. Simpson catheter in place, patent and draining urine via gravity. Safety measures in place. Will continue to monitor.
[2020-09-28 20:15] LABS: OCCULT BLOOD STOOL POSITIVE (NEGATIVE)
--- NOTE | 2020-09-28 20:31 | NUR ---
RT NOTE PT RECEIVED INTUBATED WITH 7.5 @ 23 CM. AMBU BAG @ HOB. BILATERAL CHEST RISE NOTED. SX DONE, ET TUBE SECURED AND PATENT. ALARMS ON AND AUDIBLE. VENT PLUGGED TO RED OUTLET. NO DISTRESS NOTED. WILL CONTINUE TO MONITOR T/O SHIFT. Addendum: 09/28/20 at 2030 by AMANDA LOUIE RT Amended: Links added.
[2020-09-28] MEDS: ATORVASTATIN 40 MG TABLET PO SCH (21:52)
[2020-09-28] MEDS: INSULIN GLARGINE, 100 UNIT/ML CARTRIDGE SQ SCH (22:20)
[2020-09-29] VITALS (77 sets, daily range): BP systolic 83–167; BP diastolic 38–78
[2020-09-29] MEDS: BLOOD SUGAR DIAGNOSTIC 1 EACH STRIP IN SCH ×5 (00:53→23:49)
[2020-09-29] MEDS: INSULIN REGULAR, HUMAN 100 UNIT/ML 3 ML VIAL SQ PRN ×5 (00:54→23:51)
--- NOTE | 2020-09-29 01:17 | NUR ---
MOBILITY MANAGER NOTE: Pt's BP165/75. Titrate Levo off. Will continue to monitor.
[2020-09-29] MEDS: PROPOFOL 100 ML IV PRN ×5 (03:38→22:17)
[2020-09-29 04:38] LABS: BASOPHILS % (AUTO) 0.1 % (0.0-2.0); EOSINOPHILS % (AUTO) 1.3 % (0.0-6.0); HEMATOCRIT 28 % (39-51); HEMOGLOBIN 9.5 g/dL (13.5-17.5); LYMPHOCYTES # (AUTO) 0.4 /CMM (0.8-4.8); LYMPHOCYTES % (AUTO) 2.7 % (20.0-44.0); MEAN CORPUSCULAR HGB CONC 34 g/dl (31.0-36.0); MEAN CORPUSCULAR VOLUME 90 fL (80-96); MONOCYTES # (AUTO) 0.7 /CMM (0.1-1.30); NEUTROPHILS # (AUTO) 13.6 /CMM (1.8-8.9); NEUTROPHILS % (AUTO) 90.9 % (43.0-81.0); PLATELET COUNT (AUTO) 56 /CMM (150-450)
--- NOTE | 2020-09-29 04:47 | NUR ---
VALIDATION SCIENTIST NOTE: RT increased pt's fio2 from 50% to 60%. Will continue to monitor.
[2020-09-29 04:53] LABS: BAND % (MANUAL) 5 % (0.0-5.0); LYMPHOCYTES % (MANUAL) 1 % (16-48); NEUTROPHILS % (MANUAL) 87 (42-76)
[2020-09-29 04:54] LABS: EOSINOPHILS % (MANUAL) 2 % (0-4); MONOCYTES % (MANUAL) 5 % (0-11.0)
[2020-09-29 05:09] LABS: CALCIUM, SERUM 7.3 mg/dL (8.5-10.1); CARBON DIOXIDE 23 mmol/L (21-32); CHLORIDE 99 mmol/L (98-107); CREATININE 4.3 mg/dL (0.6-1.3); GLUCOSE 295 mg/dL (74-106); MAGNESIUM 2.3 mg/dL (1.8-2.4); PHOSPHORUS 6.1 mg/dL (2.5-4.9); POTASSIUM 4.6 mmol/L (3.5-5.1); SODIUM SERUM 136 mmol/L (136-145)
[2020-09-29 05:12] LABS: UREA NITROGEN, BLOOD 99 mg/dL (7-18)
--- NOTE | 2020-09-29 06:54 | NUR ---
ONCOLOGY REP CLOSING NOTES: Rec'd pt in bed, intubated, 7.5/23cm at the lip and sedated. Tolerating vent settings well. No resp distress noted. SB/SR/ST on tele monitor. OGT in place patent and infusing Nepro at 30ml/hr. Diprivan infusing at 35mcg/kg/min Bilateral soft wrist restraints in place. Simpson catheter. Kept clean/dry. All due meds given as ordered. Safety measures in place. Will endorse to oncoming nurse for PAU.
[2020-09-29 07:46] LABS: ABG BASE EXCESS -5.5 mmol/L; ABG OXYGEN SATURATION 87.5 % (92.0-98.5); ABG PH 7.369 (7.350-7.450); ABG PO2 56.8 mmHg (75.0-100.0); AaDO2 333.6 mmHg; COHb 2.2 % (0.5-1.5); O2Hb 85.6 % (94.0-97.0); SITE, ABG Right Radial; VENT MODE, BG AC 32 400 60% +5
--- NOTE | 2020-09-29 08:00 | NUR ---
RN NOTES Received pt in EET intubated, 7.5/23cm at the lip and sedated. Tolerating vent settings well. No respiratory distress. SR on tele monitor. OGT in place patent and infusing Nepro at 30ml/hr. Keep HOB elevated all the time, right groin HD cath, intact. KASHMIR PICC line patent and infusing Diprivan at 35 mcg/kg/min. Will titrate per protocol. Bilateral soft wrist restraints in place, checked circulation. Simpson catheter in place, patent and draining urine via gravity. assist turn and reposition q 2 hr. Safety measures in place. Will continue to monitor.
[2020-09-29] MEDS: POLYETHYLENE GLYCOL 3350 17 GM POWD.PACK PO SCH (09:00)
[2020-09-29] MEDS: DOCUSATE SODIUM 100 MG CAPSULE PO SCH ×2 (09:00→18:21)
[2020-09-29] MEDS: FAMOTIDINE/PF INJ 20 MG/2 ML VIAL IV SCH ×2 (09:01→21:11)
[2020-09-29] MEDS: LIPASE/PROTEASE/AMYLASE 1 EACH CAPSULE.DR PO SCH ×3 (09:01→18:20)
[2020-09-29] MEDS: Z GUARD REMEDY 2 OZ OINT TP SCH (09:01)
[2020-09-29] MEDS: CYANOCOBALAMIN 500 MCG TABLET PO SCH (09:01)
[2020-09-29] MEDS: TAMSULOSIN 0.4 MG CAP.SR.24H PO SCH (09:01)
[2020-09-29] MEDS: DEXAMETHASONE SOD PHOSPHATE 4 MG/ML VIAL IV SCH (09:01)
[2020-09-29] MEDS ORDERED: LORAZEPAM INJ 2 MG/ML VIAL IV PRN (10:30)
--- NOTE | 2020-09-29 11:32 | NUR ---
RN NOTES ADMINISTERED ATIVAN 1 MG/ML IV PUSH FOR ANXIETY PRN, V/S TAKEN BP 112/51, P-71.
[2020-09-29] MEDS: NEPRO 1,000 ML BOTTLE GT PRN (13:12)
[2020-09-29] MEDS: CEFEPIME 1 GM in IV D5W 50 ML IV SCH (18:26)
--- NOTE | 2020-09-29 18:30 | NUR ---
RN NOTES PM care done, sanction, patient EET Tolerating vent settings well. No respiratory distress. BS-227 mg/dl coverage given, OGT in place patent and running Nepro at 30ml/hr. Keep HOB elevated all the time, right groin HD cath, intact. KASHMIR PICC line patent and infusing Diprivan at 50 mcg/kg/min. Will titrate per protocol. Bilateral soft wrist restraints in place, checked circulation. Simpson catheter in place 75 ml output, patent and draining urine via gravity. assist turn and reposition q 2 hr. Safety measures in place. endorsed oncoming nurse follow plan of care.
--- NOTE | 2020-09-29 19:10 | NUR ---
ALLEY TENDER OPENING NOTES: Rec'd pt in bed, intubated 7.5/23cm at the lip and sedated. Tolerating vent settings well. No SOB or resp distress noted. SR on tele monitor. OGT in place with Nepro infusing at 30ml/hr. LAC #20 and KASHMIR PICC in place, flushed w/ Diprivan infusing at 35mcg/kg/min. Simpson catheter in place, patent and draining urine via gravity. Safety measures in place. Will continue to monitor.
[2020-09-29] MEDS ORDERED: ALBUMIN 25% 25 GM in PREMIX 1 EA IV PRN (19:30)
[2020-09-29] MEDS ORDERED: ALBUMIN 25% 50 ML IV ONE ×2 (20:14→20:15)
--- NOTE | 2020-09-29 20:18 | NUR ---
SORTING MACHINE OPERATOR NOTE: HD nurse at bedside to start dialysis.
[2020-09-29] MEDS: INSULIN GLARGINE, 100 UNIT/ML CARTRIDGE SQ SCH (21:24)
--- NOTE | 2020-09-29 23:49 | NUR ---
INFORMATION SYSTEMS DIRECTOR NOTE: Dialysis done. 1L out
[2020-09-30] VITALS (76 sets, daily range): BP systolic 81–148; BP diastolic 45–81
[2020-09-30] MEDS: PROPOFOL 100 ML IV PRN ×5 (02:37→23:36)
--- NOTE | 2020-09-30 04:06 | NUR ---
SCHOOL BUS DRIVER/MECHANIC NOTE: RT titrated Fio2 from 60% to 70%. Will continue to monitor.
[2020-09-30 04:53] LABS: BASOPHILS % (AUTO) 0.2 % (0.0-2.0); EOSINOPHILS % (AUTO) 2.1 % (0.0-6.0); HEMOGLOBIN 7.3 g/dL (13.5-17.5); LYMPHOCYTES # (AUTO) 0.2 /CMM (0.8-4.8); LYMPHOCYTES % (AUTO) 2.8 % (20.0-44.0); MEAN CORPUSCULAR HGB CONC 36 g/dl (31.0-36.0); MEAN CORPUSCULAR VOLUME 89 fL (80-96); MONOCYTES # (AUTO) 0.3 /CMM (0.1-1.30); MONOCYTES % (AUTO) 4.2 % (2.0-12.0); NEUTROPHILS # (AUTO) 7.1 /CMM (1.8-8.9); NEUTROPHILS % (AUTO) 90.7 % (43.0-81.0); RED BLOOD CELL COUNT(AUTO) 2.27 MIL/uL (4.5-6.0); WHITE BLOOD COUNT (AUTO) 7.8 K/uL (4.3-11.0)
[2020-09-30 05:00] LABS: HEMATOCRIT 20 % (39-51); PLATELET COUNT (AUTO) 37 /CMM (150-450)
[2020-09-30 05:08] LABS: CALCIUM, SERUM 7.4 mg/dL (8.5-10.1); CARBON DIOXIDE 30 mmol/L (21-32); CHLORIDE 101 mmol/L (98-107); CREATININE 3.1 mg/dL (0.6-1.3); GLUCOSE 181 mg/dL (74-106); MAGNESIUM 2.2 mg/dL (1.8-2.4); PHOSPHORUS 4.9 mg/dL (2.5-4.9); POTASSIUM 3.9 mmol/L (3.5-5.1); SODIUM SERUM 140 mmol/L (136-145); UREA NITROGEN, BLOOD 60 mg/dL (7-18)
[2020-09-30 05:22] LABS: BAND % (MANUAL) 3 % (0.0-5.0); LYMPHOCYTES % (MANUAL) 3 % (16-48); NEUTROPHILS % (MANUAL) 83 (42-76)
[2020-09-30 05:23] LABS: EOSINOPHILS % (MANUAL) 2 % (0-4); MONOCYTES % (MANUAL) 9 % (0-11.0)
[2020-09-30 05:37] LABS: ABG BASE EXCESS 3.3 mmol/L; ABG OXYGEN SATURATION 91.6 % (92.0-98.5); ABG PCO2 41.5 mmHg (35.0-45.0); ABG PH 7.442 (7.350-7.450); ABG PO2 62.3 mmHg (75.0-100.0); AaDO2 392.2 mmHg; COHb 2.3 % (0.5-1.5); MetHb 0.3 % (0.0-1.5); O2Hb 89.2 % (94.0-97.0); PEEP,BG 5 cm H2O; SITE, ABG Right Brachial; VENT MODE, BG AC 32 400 70% +5; VT, ABG 400 mL
[2020-09-30] MEDS: BLOOD SUGAR DIAGNOSTIC 1 EACH STRIP IN SCH ×4 (05:53→23:41)
[2020-09-30] MEDS: INSULIN REGULAR, HUMAN 100 UNIT/ML 3 ML VIAL SQ PRN ×4 (05:59→23:39)
--- NOTE | 2020-09-30 06:56 | NUR ---
MANAGER RADIO CLOSING NOTES: No acute changes noted. Remains in bed, intubated 7.5/23cm at the lip and sedated. Tolerating vent settings well. No SOB or resp distress noted. SR on tele monitor. OGT in place with Nepro infusing at 30ml/hr. KASHMIR PICC patent and infusing Diprivan at 50mcg/kg/min. Simpson catheter in place, patent and draining urine via gravity. Safety measures in place. Will continue to monitor.
--- NOTE | 2020-09-30 08:00 | NUR ---
RN NOTES Received pt in EET intubated, 7.5/23cm at the lip and sedated. Tolerating vent settings well. No respiratory distress. SR on tele monitor. OGT in place patent and infusing Nepro at 30ml/hr. Keep HOB elevated all the time, right groin HD cath, intact. KASHMIR PICC line patent and infusing Diprivan at 50 mcg/kg/min. Will titrate per protocol. Bilateral soft wrist restraints in place, checked circulation. Simpson catheter in place, patent and draining urine via gravity. assist turn and reposition q 2 hr[address] Safety measures in place. Will continue to monitor.
--- NOTE | 2020-09-30 08:01 | NUR ---
WOUND CARE CONSULT: RECEIVED CONSULT FOR SKIN CONDITION ON PALMS OF HANDS. REVIEWED PHOTOS, NURSING DOCUMENTATION AND CHART. RN TO DISCUSS SKIN CONDITION WITH MD. CONTINUE ALL SKIN PROTECTION RECOMMENDATIONS. MD IN AGREEMENT WITH PLAN OF CARE.
[2020-09-30] MEDS: CYANOCOBALAMIN 500 MCG TABLET PO SCH (08:45)
[2020-09-30] MEDS: POLYETHYLENE GLYCOL 3350 17 GM POWD.PACK PO SCH (08:45)
[2020-09-30] MEDS: LIPASE/PROTEASE/AMYLASE 1 EACH CAPSULE.DR PO SCH ×3 (08:45→17:12)
[2020-09-30] MEDS: TAMSULOSIN 0.4 MG CAP.SR.24H PO SCH (08:45)
[2020-09-30] MEDS: DOCUSATE SODIUM 100 MG CAPSULE PO SCH ×2 (08:45→17:12)
[2020-09-30] MEDS: FAMOTIDINE/PF INJ 20 MG/2 ML VIAL IV SCH ×2 (08:46→23:15)
[2020-09-30] MEDS: Z GUARD REMEDY 2 OZ OINT TP SCH (08:46)
[2020-09-30] MEDS: DEXAMETHASONE SOD PHOSPHATE 4 MG/ML VIAL IV SCH (08:46)
[2020-09-30] MEDS: NEPRO 1,000 ML BOTTLE GT PRN (16:43)
--- NOTE | 2020-09-30 18:30 | NUR ---
RN NOTE PM CARE DONE, ADMINISTERED SCHEDULED MEDICATION, BS-214 MG/DL COVERAGE GIVEN, TARTRATED DIPRIVAN 30 MCG PER PROTOCOL, SEDATION VACATION DONE, RUNNING NEPRO 30 CC/HR NGT FEEDING,KEEP HOB ELEVATED FOR ASPIRATION PRECAUTION, ADMINISTERED SCHEDULED MEDICATION. PATIENT TOLERATED WELL, NO ACUTE RESPIRATORY DISTRESS. ASSIST TURN AND REPOSTION Q 2 HR. PEREZ DRAINING LOW 40ML OUTPUT. ENDORSED ONCOMING NURSE FOLLOW PLAN OF CARE.
[2020-09-30] MEDS: INSULIN GLARGINE, 100 UNIT/ML CARTRIDGE SQ SCH (23:40)
[2020-10-01] VITALS (64 sets, daily range): BP systolic 93–197; BP diastolic 49–131
[2020-10-01] MEDS: CEFEPIME 1 GM in IV D5W 50 ML IV SCH ×2 (01:59→16:29)
[2020-10-01] MEDS: PROPOFOL 100 ML IV PRN ×3 (04:13→18:49)
[2020-10-01 04:49] LABS: BASOPHILS % (AUTO) 0.1 % (0.0-2.0); EOSINOPHILS % (AUTO) 1.6 % (0.0-6.0); HEMATOCRIT 24 % (39-51); HEMOGLOBIN 8.1 g/dL (13.5-17.5); LYMPHOCYTES # (AUTO) 0.2 /CMM (0.8-4.8); LYMPHOCYTES % (AUTO) 1.8 % (20.0-44.0); MEAN CORPUSCULAR HGB CONC 34 g/dl (31.0-36.0); MEAN CORPUSCULAR VOLUME 91 fL (80-96); MONOCYTES # (AUTO) 0.3 /CMM (0.1-1.30); MONOCYTES % (AUTO) 3.3 % (2.0-12.0); NEUTROPHILS % (AUTO) 93.2 % (43.0-81.0); RED BLOOD CELL COUNT(AUTO) 2.63 MIL/uL (4.5-6.0); WHITE BLOOD COUNT (AUTO) 9.6 K/uL (4.3-11.0)
[2020-10-01 04:50] LABS: PLATELET COUNT (AUTO) 40 /CMM (150-450)
[2020-10-01 05:03] LABS: CALCIUM, SERUM 7.7 mg/dL (8.5-10.1); CARBON DIOXIDE 27 mmol/L (21-32); CHLORIDE 99 mmol/L (98-107); CREATININE 3.9 mg/dL (0.6-1.3); GLUCOSE 195 mg/dL (74-106); MAGNESIUM 2.5 mg/dL (1.8-2.4); PHOSPHORUS 6.3 mg/dL (2.5-4.9); POTASSIUM 4.4 mmol/L (3.5-5.1); SODIUM SERUM 138 mmol/L (136-145)
[2020-10-01 05:22] LABS: UREA NITROGEN, BLOOD 82 mg/dL (7-18)
[2020-10-01 05:24] LABS: EOSINOPHILS % (MANUAL) 2 % (0-4); LYMPHOCYTES % (MANUAL) 2 % (16-48); MONOCYTES % (MANUAL) 7 % (0-11.0); NEUTROPHILS % (MANUAL) 89 (42-76)
[2020-10-01] MEDS: BLOOD SUGAR DIAGNOSTIC 1 EACH STRIP IN SCH ×3 (05:24→17:19)
[2020-10-01] MEDS: INSULIN REGULAR, HUMAN 100 UNIT/ML 3 ML VIAL SQ PRN ×3 (05:25→17:18)
--- NOTE | 2020-10-01 07:54 | NUR ---
WET MILLING WHEEL OPERATOR NOTE PATIENT IN BED SEDATED AND INTUBATED TO VENT SETTING , WITH PEREZ CATH TO GRAVITY ORDERED ON TELE MONDOR SR HR 73 , WITH OG TUBE IN PLACE ON NEPRO AT 30 ML PER HOUR , LAC AND RT UA PICC LINE IN PLACE , ON DIPRIVAN DRIP ORDERED BED IN LOWEST AND LOCKED POSITION , WILL MONITOR
[2020-10-01] MEDS: CYANOCOBALAMIN 500 MCG TABLET PO SCH (08:26)
[2020-10-01] MEDS: DOCUSATE SODIUM 100 MG CAPSULE PO SCH ×2 (08:27→16:45)
[2020-10-01] MEDS: TAMSULOSIN 0.4 MG CAP.SR.24H PO SCH (08:27)
[2020-10-01] MEDS: LIPASE/PROTEASE/AMYLASE 1 EACH CAPSULE.DR PO SCH ×3 (08:27→17:13)
[2020-10-01] MEDS: DEXAMETHASONE SOD PHOSPHATE 4 MG/ML VIAL IV SCH (08:27)
[2020-10-01] MEDS: FAMOTIDINE/PF INJ 20 MG/2 ML VIAL IV SCH ×2 (08:28→21:21)
[2020-10-01] MEDS: Z GUARD REMEDY 2 OZ OINT TP SCH (08:40)
[2020-10-01] MEDS: POLYETHYLENE GLYCOL 3350 17 GM POWD.PACK PO SCH (08:40)
--- NOTE | 2020-10-01 10:26 | NUR ---
agriculture sales account manager note dr hoffman at bedside carmen that at times saturation 88% ok to cont vent setting no propofol sedation art this time
--- NOTE | 2020-10-01 11:42 | NUR ---
ISHA was informed during Interdisciplinary meeting that patient's physicians would like to schedule a bio-ethics meeting. SW reached out to patient's RN to confirm list of physicians. RN unavailable at this time. SW will reach out to RN again to confirm patient's physicians to schedule this meeting.
--- NOTE | 2020-10-01 12:19 | NUR ---
ISHA contacted patient's next of kin Betito regarding a bioethics meeting regarding this patient. Per Betito, this afternoon at 3 or 3:30 works for him. SW to follow-up with patient's physician's regarding time for bioethics meeting. ISHA remains available for all needs regarding this patient.
--- NOTE | 2020-10-01 13:49 | NUR ---
horticultural farmer note per joey barron rn applique cutter aware that saturation 88-90%ok to renew soft restrain, updated patent condition, aware that lt eye with some blood noted
--- NOTE | 2020-10-01 14:20 | NUR ---
ISHA spoke with patient's physician and ISHA scheduled a bio-ethics meeting at 3:00pm today 10/01. Number for bioethics meeting [phone],,[phone] ISHA provided this information for patient's physicians and patient's son Betito.
--- NOTE | 2020-10-01 15:00 | NUR ---
BENEFITS SPECIALIST NOTE CONT ON VENT SETTING ORDERED ,TURN REPOSITION WILL CONT TO MONITOR SATURATION 88 %DR ROBERT AWARE
[2020-10-01] MEDS: NEPRO 1,000 ML BOTTLE GT PRN (18:21)
--- NOTE | 2020-10-01 18:55 | NUR ---
COPY CAMERA OPERATOR NOTE CONT WITH VENT SETTING ORDERED WITH PROPOFOL DRIP ORDERED WITH OG TUBE PLCEMENT CHECKED BY AUSULTATION , KEEP HOB ELELVATED AT ALL TIME, WILL CONT TO MONITOR
--- NOTE | 2020-10-01 20:00 | NUR ---
Received patient non verbal intubated on full vent support.Sedated on Diprivan gtt at 40 mcg. DNR status.Dx:Covid Pneumonia.VSS.SR.OGT feeding infusing.Placement verified patent and no residual noted.Maintain HOB elevated.FC to gravity drainage.Turned and repositioned.No acute distress noted..
[2020-10-01] MEDS: INSULIN GLARGINE, 100 UNIT/ML CARTRIDGE SQ SCH (21:22)
[2020-10-02] VITALS (60 sets, daily range): BP systolic 90–144; BP diastolic 47–68
--- NOTE | 2020-10-02 | NUR ---
Patient remains sedated.FSBS monitored and coverage given per sliding scale. Tolerating tube feeding well.HOB elevated.Turned and repositioned.
[2020-10-02] MEDS: BLOOD SUGAR DIAGNOSTIC 1 EACH STRIP IN SCH ×5 (00:14→23:15)
[2020-10-02] MEDS: INSULIN REGULAR, HUMAN 100 UNIT/ML 3 ML VIAL SQ PRN ×5 (00:15→23:16)
[2020-10-02] MEDS: PROPOFOL 100 ML IV PRN ×5 (01:13→19:32)
[2020-10-02 04:31] LABS: BASOPHILS % (AUTO) 0.3 % (0.0-2.0); EOSINOPHILS % (AUTO) 2.3 % (0.0-6.0); HEMATOCRIT 22 % (39-51); HEMOGLOBIN 7.5 g/dL (13.5-17.5); LYMPHOCYTES # (AUTO) 0.3 /CMM (0.8-4.8); LYMPHOCYTES % (AUTO) 3.3 % (20.0-44.0); MEAN CORPUSCULAR HGB CONC 34 g/dl (31.0-36.0); MEAN CORPUSCULAR VOLUME 91 fL (80-96); MONOCYTES # (AUTO) 0.5 /CMM (0.1-1.30); MONOCYTES % (AUTO) 5.1 % (2.0-12.0); NEUTROPHILS # (AUTO) 8.2 /CMM (1.8-8.9); RED BLOOD CELL COUNT(AUTO) 2.43 MIL/uL (4.5-6.0); WHITE BLOOD COUNT (AUTO) 9.2 K/uL (4.3-11.0)
[2020-10-02 04:54] LABS: PLATELET COUNT (AUTO) 49 /CMM (150-450)
[2020-10-02 04:55] LABS: CALCIUM, SERUM 8.1 mg/dL (8.5-10.1); CARBON DIOXIDE 27 mmol/L (21-32); CHLORIDE 98 mmol/L (98-107); CREATININE 4.9 mg/dL (0.6-1.3); GLUCOSE 258 mg/dL (74-106); PHOSPHORUS 7.2 mg/dL (2.5-4.9); POTASSIUM 4.7 mmol/L (3.5-5.1); SODIUM SERUM 137 mmol/L (136-145)
[2020-10-02 04:57] LABS: UREA NITROGEN, BLOOD 99 mg/dL (7-18)
[2020-10-02 05:48] LABS: BAND % (MANUAL) 3 % (0.0-5.0); LYMPHOCYTES % (MANUAL) 3 % (16-48); MONOCYTES % (MANUAL) 5 % (0-11.0); NEUTROPHILS % (MANUAL) 88 (42-76)
--- NOTE | 2020-10-02 07:30 | NUR ---
RN OPENING NOTE Received [facility] in bed, sed[facility] toler[facility] settings well, spo2 is 91%, respirations even and unlabored. Tele monitor readings is sinus rhythm/josefina 50-60 ,Simpson cath in place draining dark yellow urine by gravity. Iv line Left AC and right upper PICC line patent, intact, running Propofol @ 40meg/kg/min. OGT tube present, patent, auscultated, placement verified, running feeding Nephro @30 cc/hr, tolerating well. Safety measures in place, bed is locked, in lowest position, HOB elevated, will cont to monitor
--- NOTE | 2020-10-02 07:45 | NUR ---
Per Dr Mchugh no sedation vacation for today
--- NOTE | 2020-10-02 07:50 | NUR ---
Patient desat to 77% at 0600 RT at bedside and titrated FIO2 to 100%.No acute distress noted. All needs met.Report given to day shift RN for continuity of care.
[2020-10-02] MEDS: LIPASE/PROTEASE/AMYLASE 1 EACH CAPSULE.DR PO SCH ×3 (08:44→17:19)
[2020-10-02] MEDS: CYANOCOBALAMIN 500 MCG TABLET PO SCH (08:44)
[2020-10-02] MEDS: DOCUSATE SODIUM 100 MG CAPSULE PO SCH ×2 (08:44→17:19)
[2020-10-02] MEDS: TAMSULOSIN 0.4 MG CAP.SR.24H PO SCH (08:44)
[2020-10-02] MEDS: FAMOTIDINE/PF INJ 20 MG/2 ML VIAL IV SCH ×2 (08:44→21:33)
[2020-10-02] MEDS: POLYETHYLENE GLYCOL 3350 17 GM POWD.PACK PO SCH (08:44)
[2020-10-02] MEDS: Z GUARD REMEDY 2 OZ OINT TP SCH (09:00)
--- NOTE | 2020-10-02 09:00 | NUR ---
RN NOTE Advanced OGT tube at 62 cm, auscultated placement positive, will cont to monitor
--- NOTE | 2020-10-02 12:10 | NUR ---
Alec NICHOLSON at bed site, alec initiated
--- NOTE | 2020-10-02 14:29 | NUR ---
FINISHED DIALISYS , ZERO OUTPUT
--- NOTE | 2020-10-02 15:52 | NUR ---
Per Hospitalist, ok to remove restrains
[2020-10-02] MEDS: NEPRO 1,000 ML BOTTLE GT PRN (17:16)
[2020-10-02] MEDS: CEFEPIME 1 GM in IV D5W 50 ML IV SCH (17:19)
--- NOTE | 2020-10-02 19:24 | NUR ---
Rn closing notes Patient remains in bed, tolerating vent settings well settings well, [id number]% no acute distress or signs of pain or discomfort noted during shift; comfort needs provided, medications given, IV line patent, Simpson cath patent, safety measures implemented, bed in lowest position, HOB elevated, call light in reach, will endorse to PM shift RN for PAU
[2020-10-02] MEDS: INSULIN GLARGINE, 100 UNIT/ML CARTRIDGE SQ SCH (23:17)
[2020-10-03] VITALS (27 sets, daily range): BP systolic 112–178; BP diastolic 59–91
[2020-10-03] MEDS: PROPOFOL 100 ML IV PRN (01:48)
[2020-10-03 04:43] LABS: BASOPHILS % (AUTO) 0.2 % (0.0-2.0); EOSINOPHILS % (AUTO) 1.3 % (0.0-6.0); LYMPHOCYTES # (AUTO) 0.2 /CMM (0.8-4.8); LYMPHOCYTES % (AUTO) 2.4 % (20.0-44.0); MEAN CORPUSCULAR HGB CONC 34 g/dl (31.0-36.0); MEAN CORPUSCULAR VOLUME 91 fL (80-96); MONOCYTES # (AUTO) 0.4 /CMM (0.1-1.30); MONOCYTES % (AUTO) 4.1 % (2.0-12.0); NEUTROPHILS # (AUTO) 8.4 /CMM (1.8-8.9); PLATELET COUNT (AUTO) 57 /CMM (150-450); RED BLOOD CELL COUNT(AUTO) 2.21 MIL/uL (4.5-6.0); WHITE BLOOD COUNT (AUTO) 9.1 K/uL (4.3-11.0)
[2020-10-03 04:52] LABS: CALCIUM, SERUM 8.1 mg/dL (8.5-10.1); CARBON DIOXIDE 30 mmol/L (21-32); CHLORIDE 102 mmol/L (98-107); CREATININE 3.7 mg/dL (0.6-1.3); GLUCOSE 206 mg/dL (74-106); MAGNESIUM 2.6 mg/dL (1.8-2.4); PHOSPHORUS 5.5 mg/dL (2.5-4.9); POTASSIUM 4.2 mmol/L (3.5-5.1); SODIUM SERUM 141 mmol/L (136-145); UREA NITROGEN, BLOOD 69 mg/dL (7-18)
[2020-10-03 04:55] LABS: HEMATOCRIT 20 % (39-51); HEMOGLOBIN 6.8 g/dL (13.5-17.5)
[2020-10-03 05:11] LABS: ABG BASE EXCESS 1.3 mmol/L; ABG OXYGEN SATURATION 98.6 % (92.0-98.5); ABG PCO2 46.9 mmHg (35.0-45.0); ABG PH 7.374 (7.350-7.450); ABG PO2 138.6 mmHg (75.0-100.0); AaDO2 237.6 mmHg; COHb 2.3 % (0.5-1.5); MetHb 0.3 % (0.0-1.5); PEEP,BG 10 cm H2O; SITE, ABG Right Radial; VENT MODE, BG AC 32 400 60% +10; VT, ABG 400 mL
[2020-10-03] MEDS: BLOOD SUGAR DIAGNOSTIC 1 EACH STRIP IN SCH ×4 (05:15→23:37)
[2020-10-03] MEDS: INSULIN REGULAR, HUMAN 100 UNIT/ML 3 ML VIAL SQ PRN ×4 (05:15→23:38)
[2020-10-03 05:26] LABS: LYMPHOCYTES % (MANUAL) 7 % (16-48); MONOCYTES % (MANUAL) 5 % (0-11.0); NEUTROPHILS % (MANUAL) 88 (42-76)
--- NOTE | 2020-10-03 07:55 | NUR ---
RN OPENING Patient IN BED , tolerating vent settings well settings well, [id number]% no acute distress or signs of RESPIRATORY DISTRESS NOTED; IV line patent,INTACT, NO S/S OF INFILTRATION OR INFECTION NOTED Simpson cath patent,IN TACT ND DRAINING BY GRAVITY. SAFETY MEASUREMENTS IMPLEMENTED PER HOSPITAL POLICY. BD IS IN THE LOWEST POSITION, SIDE RAILS ARE UP X2. CALL LIGHT WITHIN THE REACH. WILL CONTINUE TO MONITOR
[2020-10-03] MEDS: DOCUSATE SODIUM 100 MG CAPSULE PO SCH ×2 (08:46→16:39)
[2020-10-03] MEDS: LIPASE/PROTEASE/AMYLASE 1 EACH CAPSULE.DR PO SCH ×3 (08:46→18:21)
[2020-10-03] MEDS: POLYETHYLENE GLYCOL 3350 17 GM POWD.PACK PO SCH (08:46)
[2020-10-03] MEDS: CYANOCOBALAMIN 500 MCG TABLET PO SCH (08:46)
[2020-10-03] MEDS: TAMSULOSIN 0.4 MG CAP.SR.24H PO SCH (08:46)
[2020-10-03] MEDS: FAMOTIDINE/PF INJ 20 MG/2 ML VIAL IV SCH (08:46)
[2020-10-03] MEDS: Z GUARD REMEDY 2 OZ OINT TP SCH (08:47)
--- NOTE | 2020-10-03 09:00 | NUR ---
RN NOTES LAB CALLED BLOOD READY
--- NOTE | 2020-10-03 10:06 | NUR ---
vent changes below per dr. hoffman: fio2 50% peep +5 Addendum: 10/03/20 at 1006 by JAYE SNYDER RT Amended: Links added.
--- NOTE | 2020-10-03 10:10 | NUR ---
placed back to 60% and peep 10 due to 62% spo2 Addendum: 10/03/20 at 1010 by JAYE SNYDER RT Amended: Links added.
--- NOTE | 2020-10-03 10:18 | NUR ---
RN NOTES VENT CHANGED ACCORDINGLY DR ROBERT 88% KEEP 50 % FIO2 AND PEEP 10
--- NOTE | 2020-10-03 13:45 | NUR ---
RN NOTES BLOOD TRANSFUSIOON IS DONE NO REACTION. TOLERATED WELL
[2020-10-03] MEDS: CEFEPIME 1 GM in IV D5W 50 ML IV SCH (16:39)
--- NOTE | 2020-10-03 18:15 | NUR ---
RN CLOSING NOTES Patient IN BED , tolerating vent settings well settings well, [id number]% no acute distress or signs of RESPIRATORY DISTRESS NOTED; IV line patent,INTACT, NO S/S OF INFILTRATION OR INFECTION NOTED Simpson cath patent,INTACT ND DRAINING BY GRAVITY. SAFETY MEASUREMENTS IMPLEMENTED PER HOSPITAL POLICY. BD IS IN THE LOWEST POSITION, SIDE RAILS ARE UP X2. CALL LIGHT WITHIN THE REACH. WILL ENDORSE TO PM NURSE FOR PAU
[2020-10-03] MEDS: FAMOTIDINE (20 MG) 20 MG TABLET GT SCH (21:10)
[2020-10-03] MEDS: INSULIN GLARGINE, 100 UNIT/ML CARTRIDGE SQ SCH (21:12)
--- NOTE | 2020-10-03 21:32 | NUR ---
LATEST BP OF PT 177/83 HR 92 INFORMED FRANKY ISLAS AERIAL SPRAYER CONTROL PANEL TESTER WITH ORDER FOR CLONIDINE 0.1MG VIA GTUBE Q8H FOR SBP>160 NOTED AND CARRIED OUT
[2020-10-03] MEDS ORDERED: CLONIDINE HCL 0.1 MG TABLET GT PRN (22:00)
[2020-10-03 22:57] LABS: HEMOGLOBIN 8.9 g/dL (13.5-17.5)
[2020-10-04] VITALS (25 sets, daily range): BP systolic 91–173; BP diastolic 45–83
[2020-10-04] MEDS: NEPRO 1,000 ML BOTTLE GT PRN (00:12)
--- NOTE | 2020-10-04 04:02 | NUR ---
RT NOTE PT REC'D ORALLY INTUBATED VIA ETT SZ 7.5 SECURED AT 25 CM AT THE LIPLINE. PT ON [facility] VENT ON NOTED SETTINGS CHARTED. PT SX'D FOR SMALL AMT OF YELLOW SECRETIONS. SECRETIONS. ALARMS ARE SET AND AUDIBLE. AMBU BAG BEDSIDE. VENT PLUGGED INTO RED OUTLET. WILL CONTINUE TO MONITOR CLOSELY. Addendum: 10/04/20 at 0403 by JUAQUIN FRANCE RT Amended: Links added.
[2020-10-04 06:30] LABS: ABG BASE EXCESS -2.8 mmol/L; ABG OXYGEN SATURATION 90.1 % (92.0-98.5); ABG PCO2 49.5 mmHg (35.0-45.0); ABG PH 7.298 (7.350-7.450); ABG PO2 65.1 mmHg (75.0-100.0); AaDO2 380.8 mmHg; COHb 2.4 % (0.5-1.5); MetHb 0.3 % (0.0-1.5); O2Hb 87.7 % (94.0-97.0); SITE, ABG Left Brachial
[2020-10-04 06:34] LABS: BASOPHILS % (AUTO) 0.3 % (0.0-2.0); EOSINOPHILS % (AUTO) 0.2 % (0.0-6.0); HEMATOCRIT 27 % (39-51); HEMOGLOBIN 8.9 g/dL (13.5-17.5); LYMPHOCYTES # (AUTO) 0.3 /CMM (0.8-4.8); LYMPHOCYTES % (AUTO) 2.1 % (20.0-44.0); MEAN CORPUSCULAR HGB CONC 33 g/dl (31.0-36.0); MEAN CORPUSCULAR VOLUME 92 fL (80-96); MONOCYTES # (AUTO) 0.7 /CMM (0.1-1.30); MONOCYTES % (AUTO) 5.3 % (2.0-12.0); NEUTROPHILS # (AUTO) 11.6 /CMM (1.8-8.9); NEUTROPHILS % (AUTO) 92.1 % (43.0-81.0); PLATELET COUNT (AUTO) 71 /CMM (150-450); RED BLOOD CELL COUNT(AUTO) 2.91 MIL/uL (4.5-6.0); WHITE BLOOD COUNT (AUTO) 12.6 K/uL (4.3-11.0)
[2020-10-04 06:43] LABS: CALCIUM, SERUM 8.5 mg/dL (8.5-10.1); CARBON DIOXIDE 27 mmol/L (21-32); CHLORIDE 100 mmol/L (98-107); CREATININE 4.7 mg/dL (0.6-1.3); GLUCOSE 187 mg/dL (74-106); MAGNESIUM 3.4 mg/dL (1.8-2.4); POTASSIUM 5.4 mmol/L (3.5-5.1); SODIUM SERUM 141 mmol/L (136-145)
[2020-10-04 06:59] LABS: PHOSPHORUS 8.3 mg/dL (2.5-4.9); UREA NITROGEN, BLOOD 97 mg/dL (7-18)
[2020-10-04] MEDS: INSULIN REGULAR, HUMAN 100 UNIT/ML 3 ML VIAL SQ PRN ×4 (07:00→22:48)
[2020-10-04] MEDS: BLOOD SUGAR DIAGNOSTIC 1 EACH STRIP IN SCH ×4 (07:00→23:01)
--- NOTE | 2020-10-04 07:10 | NUR ---
RN NOTES RECEIVED PATIENT IN BED RESTING COMFORTABLY IN MODERATE HIGH BACK REST. OPEN EYES AND AROUSABLE TO PAIN, ON A VENT AC 32, TV 400, FIO2 OF 60% AND PEEP OF 10, TOLERATING CURRENT SETTINGS. NO SIGNS OF DISTRESS NOTED AT THIS TIME. ON OGT FEEDING NEPRO RUNNING @30ML/HR WITH RSV OF 10. IV ACCESS ON LAC #20 AND KASHMIR PICC LINE WITH TKO RUNNING. SAFETY MEASURES IN PLACE, WILL CONTINUE TO MONITOR.
[2020-10-04] MEDS: LIPASE/PROTEASE/AMYLASE 1 EACH CAPSULE.DR PO SCH ×3 (08:26→17:09)
[2020-10-04] MEDS: FAMOTIDINE (20 MG) 20 MG TABLET GT SCH ×2 (08:26→21:26)
[2020-10-04] MEDS: POLYETHYLENE GLYCOL 3350 17 GM POWD.PACK PO SCH (08:26)
[2020-10-04] MEDS: CYANOCOBALAMIN 500 MCG TABLET PO SCH (08:26)
[2020-10-04] MEDS: DOCUSATE SODIUM 100 MG CAPSULE PO SCH ×2 (08:26→17:09)
[2020-10-04] MEDS: TAMSULOSIN 0.4 MG CAP.SR.24H PO SCH (08:26)
[2020-10-04] MEDS: Z GUARD REMEDY 2 OZ OINT TP SCH (08:27)
--- NOTE | 2020-10-04 09:00 | NUR ---
RN NOTES DIALYSIS NURSE ON UNIT, NO SIGNS OF DISTRESS, WILL BE DIALYZE, WILL CONTINUE TO MONITOR.
--- NOTE | 2020-10-04 10:30 | NUR ---
RN NOTES S/P HD, WITH OUTPUT OF 1L, NO SIGNS OF DISTRESS, TOLERATED WELL. WILL CONTINUE TO MONITOR.
[2020-10-04] MEDS ORDERED: EPOETIN ALFA (20,000 UNIT) 20,000 UNIT/ML VIAL SQ ONE (14:00)
--- NOTE | 2020-10-04 14:12 | NUR ---
RN NOTES CALLED PHARMACY, EPOGEN NOT AVAILABLE, WILL F/U
[2020-10-04] MEDS: CEFEPIME 1 GM in IV D5W 50 ML IV SCH (17:01)
--- NOTE | 2020-10-04 19:30 | NUR ---
MICROSTRATEGY ARCHITECT PT RCD W/DX COVID PNA; OBTUNDED. NSR ON MONITOR. INTUBATED 7.5 @ 23 W/VENT SETTINGS AC 32 400 80% +10. OG TUBE IN PLACE W/NEPRO @ 30 ML/HR. SKIN TEARS TO BUE AND RIGHT EAR DTI; MEPILEX APPLIED. KASHMIR PICC PATENT W/GOOD BLOOD RETURN. CONTINUE TO MONITOR.
[2020-10-04] MEDS: INSULIN GLARGINE, 100 UNIT/ML CARTRIDGE SQ SCH (22:47)
--- NOTE | 2020-10-04 23:49 | NUR ---
RT pt received on mechanical vent with current settings. orally intubated with ett size 7.5, 25 cm. vent plugged in to red outlet. ett secure. ambu bag at [facility]. moderate dias secretions suctioned via ett. no sob, no resp distress. will continue to monitor.
[2020-10-05] VITALS (28 sets, daily range): BP systolic 78–139; BP diastolic 44–69
[2020-10-05 04:33] LABS: BASOPHILS % (AUTO) 0.4 % (0.0-2.0); EOSINOPHILS % (AUTO) 1.1 % (0.0-6.0); HEMATOCRIT 21 % (39-51); LYMPHOCYTES # (AUTO) 0.3 /CMM (0.8-4.8); LYMPHOCYTES % (AUTO) 2.5 % (20.0-44.0); MEAN CORPUSCULAR HGB CONC 33 g/dl (31.0-36.0); MEAN CORPUSCULAR VOLUME 94 fL (80-96); MONOCYTES # (AUTO) 0.6 /CMM (0.1-1.30); MONOCYTES % (AUTO) 5.4 % (2.0-12.0); NEUTROPHILS # (AUTO) 10.5 /CMM (1.8-8.9); NEUTROPHILS % (AUTO) 90.6 % (43.0-81.0); PLATELET COUNT (AUTO) 60 /CMM (150-450); WHITE BLOOD COUNT (AUTO) 11.6 K/uL (4.3-11.0)
[2020-10-05 04:38] LABS: HEMOGLOBIN 6.7 g/dL (13.5-17.5)
[2020-10-05 05:03] LABS: BAND % (MANUAL) 2 % (0.0-5.0); EOSINOPHILS % (MANUAL) 1 % (0-4); LYMPHOCYTES % (MANUAL) 6 % (16-48); MONOCYTES % (MANUAL) 9 % (0-11.0); NEUTROPHILS % (MANUAL) 82 (42-76)
[2020-10-05 05:05] LABS: CARBON DIOXIDE 26 mmol/L (21-32); CHLORIDE 100 mmol/L (98-107); CREATININE 4.4 mg/dL (0.6-1.3); GLUCOSE 122 mg/dL (74-106); POTASSIUM 4.7 mmol/L (3.5-5.1); SODIUM SERUM 138 mmol/L (136-145)
[2020-10-05 05:06] LABS: MAGNESIUM 2.6 mg/dL (1.8-2.4); PHOSPHORUS 7.8 mg/dL (2.5-4.9)
[2020-10-05 05:09] LABS: UREA NITROGEN, BLOOD 90 mg/dL (7-18)
[2020-10-05] MEDS: BLOOD SUGAR DIAGNOSTIC 1 EACH STRIP IN SCH ×3 (05:15→18:00)
[2020-10-05 05:49] LABS: ABG BASE EXCESS -2.5 mmol/L; ABG OXYGEN SATURATION 95.1 % (92.0-98.5); ABG PCO2 51.1 mmHg (35.0-45.0); ABG PO2 83.2 mmHg (75.0-100.0); AaDO2 433.6 mmHg; MetHb 0.2 % (0.0-1.5); O2Hb 91.1 % (94.0-97.0); SITE, ABG Right Radial; VENT MODE, BG AC 32 400 80% +10
[2020-10-05] MEDS: NEPRO 1,000 ML BOTTLE GT PRN (07:59)
[2020-10-05] MEDS: LIPASE/PROTEASE/AMYLASE 1 EACH CAPSULE.DR PO SCH ×3 (08:14→18:12)
[2020-10-05] MEDS: DOCUSATE SODIUM 100 MG CAPSULE PO SCH (08:14)
[2020-10-05] MEDS: TAMSULOSIN 0.4 MG CAP.SR.24H PO SCH (08:14)
[2020-10-05] MEDS: FAMOTIDINE (20 MG) 20 MG TABLET GT SCH ×2 (08:15→20:37)
[2020-10-05] MEDS: POLYETHYLENE GLYCOL 3350 17 GM POWD.PACK PO SCH (08:15)
[2020-10-05] MEDS: CYANOCOBALAMIN 500 MCG TABLET PO SCH (08:15)
[2020-10-05] MEDS: Z GUARD REMEDY 2 OZ OINT TP SCH (08:16)
[2020-10-05] MEDS: INSULIN REGULAR, HUMAN 100 UNIT/ML 3 ML VIAL SQ PRN ×2 (13:18→18:10)
[2020-10-05] MEDS: CEFEPIME 1 GM in IV D5W 50 ML IV SCH (16:24)
[2020-10-05] MEDS: DOCUSATE SODIUM LIQ 100 MG/10 ML UDC NG SCH (16:59)
--- NOTE | 2020-10-05 19:00 | NUR ---
RN NOTES SEEN AND EXAMINED BY HOSPITALIST, LUIS ABEL NP. TO START PROPOFOL IF RR STAYS ON HIGH 30'S, WILL CONTINUE TO MONITOR AND WILL ENDORSE TO AIRPLANE PATROLLER NURSE.
[2020-10-05] MEDS: INSULIN GLARGINE, 100 UNIT/ML CARTRIDGE SQ SCH (21:21)
[2020-10-06] VITALS (58 sets, daily range): BP systolic 83–140; BP diastolic 32–77
[2020-10-06] MEDS: BLOOD SUGAR DIAGNOSTIC 1 EACH STRIP IN SCH ×4 (00:20→18:23)
[2020-10-06] MEDS: INSULIN REGULAR, HUMAN 100 UNIT/ML 3 ML VIAL SQ PRN ×3 (00:22→18:37)
[2020-10-06] MEDS: NEPRO 1,000 ML BOTTLE GT PRN (00:24)
[2020-10-06] MEDS: PROPOFOL 100 ML IV PRN (02:50)
[2020-10-06] MEDS: NOREPINEPHRINE 8 MG in IV NS 0.9% 242 ML IV PRN ×2 (05:19→17:54)
--- NOTE | 2020-10-06 07:00 | NUR ---
PATIENT IS SEDIATED PROPOFOL AT 10MCG KG HR AND EFFECTIVE BLOOD PRESSURE AT 5:15 DROPPED TP 8332 LEVOPHED STARTED AT 0.1 MCJ KG HR CHARGE NURSE TURNED IT OFF AT 6AM BLOOD PRESSURE WAS UP AND AT THIS TIME 104/53 30 RESP 95 HR NEPHRO FDY AT 30 ML HR NO RESIDUALS FLUSHED X2 WITH 200 CC H20 ONLY 10 ML IN THE PEREZ OUTPUT NURSE STATED THAT IS ALL I WILL GET PT HAS CKD.
[2020-10-06] MEDS: LIPASE/PROTEASE/AMYLASE 1 EACH CAPSULE.DR PO SCH ×3 (08:45→18:26)
[2020-10-06] MEDS: TAMSULOSIN 0.4 MG CAP.SR.24H PO SCH (08:45)
[2020-10-06] MEDS: FAMOTIDINE (20 MG) 20 MG TABLET GT SCH ×2 (08:45→21:34)
[2020-10-06] MEDS: DOCUSATE SODIUM LIQ 100 MG/10 ML UDC NG SCH ×2 (08:45→18:26)
[2020-10-06] MEDS: POLYETHYLENE GLYCOL 3350 17 GM POWD.PACK PO SCH (08:45)
[2020-10-06] MEDS: CYANOCOBALAMIN 500 MCG TABLET PO SCH (08:45)
[2020-10-06] MEDS: Z GUARD REMEDY 2 OZ OINT TP SCH (08:46)
[2020-10-06 08:59] LABS: ABG BASE EXCESS -5.1 mmol/L; ABG OXYGEN SATURATION 89.7 % (92.0-98.5); ABG PCO2 53.2 mmHg (35.0-45.0); AaDO2 450.5 mmHg; COHb 3.6 % (0.5-1.5); O2Hb 86.5 % (94.0-97.0); PEEP,BG 10 cm H2O; SITE, ABG Right Radial; VT, ABG 400 mL
--- NOTE | 2020-10-06 09:00 | NUR ---
RN NOTES PER DR. ROBERT, IF HR IS <100 AND RR IS NOT >35, MAY HOLD OFF ON PROPOFOL. WILL CONTINUE TO MONITOR.
[2020-10-06 12:07] LABS: BASOPHILS # (AUTO) 0.2 /CMM (0.0-0.2); BASOPHILS % (AUTO) 0.7 % (0.0-2.0); HEMATOCRIT 28 % (39-51); HEMOGLOBIN 8.9 g/dL (13.5-17.5); LYMPHOCYTES # (AUTO) 0.7 /CMM (0.8-4.8); LYMPHOCYTES % (AUTO) 3.3 % (20.0-44.0); MEAN CORPUSCULAR HGB CONC 32 g/dl (31.0-36.0); MEAN CORPUSCULAR VOLUME 94 fL (80-96); MONOCYTES # (AUTO) 1.3 /CMM (0.1-1.30); MONOCYTES % (AUTO) 6.1 % (2.0-12.0); NEUTROPHILS # (AUTO) 19.7 /CMM (1.8-8.9); NEUTROPHILS % (AUTO) 88.9 % (43.0-81.0); PLATELET COUNT (AUTO) 114 /CMM (150-450); RED BLOOD CELL COUNT(AUTO) 2.93 MIL/uL (4.5-6.0); WHITE BLOOD COUNT (AUTO) 22.2 K/uL (4.3-11.0)
[2020-10-06 13:13] LABS: CALCIUM, SERUM 7.8 mg/dL (8.5-10.1); CARBON DIOXIDE 28 mmol/L (21-32); CHLORIDE 97 mmol/L (98-107); GLUCOSE 127 mg/dL (74-106); POTASSIUM 4.5 mmol/L (3.5-5.1); SODIUM SERUM 134 mmol/L (136-145); UREA NITROGEN, BLOOD 69 mg/dL (7-18)
--- NOTE | 2020-10-06 15:00 | NUR ---
RECEIVED REPORT FROM AGUILAR NICHOLSON FOR PAU.
[2020-10-06] MEDS: CEFEPIME 1 GM in IV D5W 50 ML IV SCH (17:23)
[2020-10-06] MEDS: INSULIN GLARGINE, 100 UNIT/ML CARTRIDGE SQ SCH (22:54)
[2020-10-07] VITALS (53 sets, daily range): BP systolic 84–132; BP diastolic 40–69
[2020-10-07] MEDS: INSULIN REGULAR, HUMAN 100 UNIT/ML 3 ML VIAL SQ PRN ×2 (00:06→06:34)
[2020-10-07] MEDS: BLOOD SUGAR DIAGNOSTIC 1 EACH STRIP IN SCH ×3 (00:42→12:34)
[2020-10-07] MEDS: NOREPINEPHRINE 8 MG in IV NS 0.9% 242 ML IV PRN (02:50)
[2020-10-07 04:50] LABS: BASOPHILS # (AUTO) 0.1 /CMM (0.0-0.2); BASOPHILS % (AUTO) 0.4 % (0.0-2.0); EOSINOPHILS % (AUTO) 0.9 % (0.0-6.0); LYMPHOCYTES # (AUTO) 0.5 /CMM (0.8-4.8); LYMPHOCYTES % (AUTO) 2.8 % (20.0-44.0); MEAN CORPUSCULAR HGB CONC 32 g/dl (31.0-36.0); MEAN CORPUSCULAR VOLUME 96 fL (80-96); MONOCYTES # (AUTO) 0.9 /CMM (0.1-1.30); MONOCYTES % (AUTO) 5.4 % (2.0-12.0); NEUTROPHILS # (AUTO) 15.6 /CMM (1.8-8.9); NEUTROPHILS % (AUTO) 90.5 % (43.0-81.0); PLATELET COUNT (AUTO) 76 /CMM (150-450); RED BLOOD CELL COUNT(AUTO) 2.01 MIL/uL (4.5-6.0); WHITE BLOOD COUNT (AUTO) 17.2 K/uL (4.3-11.0)
[2020-10-07 05:02] LABS: ALANINE AMINOTRANSFERASE 54 U/L (12-78); ALKALINE PHOSPHATASE 230 U/L (46-116); ASPARTATE AMINOTRANSFERASE 53 U/L (15-37); BILIRUBIN,TOTAL 0.8 mg/dL (0.2-1.0); CALCIUM, SERUM 7.7 mg/dL (8.5-10.1); CARBON DIOXIDE 25 mmol/L (21-32); CHLORIDE 100 mmol/L (98-107); CREATININE 4.5 mg/dL (0.6-1.3); GLUCOSE 161 mg/dL (74-106); MAGNESIUM 2.5 mg/dL (1.8-2.4); POTASSIUM 5.1 mmol/L (3.5-5.1); SODIUM SERUM 136 mmol/L (136-145); TOTAL PROTEIN, SERUM 6.2 g/dL (6.4-8.2)
[2020-10-07 05:11] LABS: HEMATOCRIT 19 % (39-51); HEMOGLOBIN 6.2 g/dL (13.5-17.5)
[2020-10-07 05:12] LABS: ALBUMIN 1.4 g/dL (3.4-5.0); PHOSPHORUS 8.1 mg/dL (2.5-4.9); UREA NITROGEN, BLOOD 105 mg/dL (7-18)
[2020-10-07 06:27] LABS: BAND % (MANUAL) 8 % (0.0-5.0); EOSINOPHILS % (MANUAL) 1 % (0-4); LYMPHOCYTES % (MANUAL) 7 % (16-48); METAMYELOCYTES % 1 % (0-0); MONOCYTES % (MANUAL) 3 % (0-11.0); NEUTROPHILS % (MANUAL) 80 (42-76)
--- NOTE | 2020-10-07 07:26 | NUR ---
RN NOTES RT EAR AND SACRAL DTI NOTED WOUND CONSULT DONE. PICTURES TAKEN AND PLACED IN THE CHART.
--- NOTE | 2020-10-07 07:26 | NUR ---
ENDORSEMENT GIVEN TO AM NURSE FOR PAU. NO CHANGES NOTED ALL THE IV LINES INTACT PATENT FLUSHES WELL, MEDICATIONS WERE GIVEN ORDERED. KEPT CLEAN DRY AND COMFORTABLE.ALL SAFETY MEASURES IN PLACE, CALL LIGHT WITHIN REACH.
[2020-10-07] MEDS ORDERED: ALBUMIN 25% 25 GM in PREMIX 1 EA IV SCH (07:30)
--- NOTE | 2020-10-07 07:40 | NUR ---
RT PATIENT REC'D ORALLY INTUBATED ON [facility] VENT IN CRITICAL CONDITION. VENT SETTINGS AND ALARMS CHECKED. ETT SECURE AND PATENT. VENT PLUGGED INTO RED OUTLET. PT SX'D. Addendum: 10/07/20 at 1547 by JAKY DALY RT Amended: Links added.
--- NOTE | 2020-10-07 08:03 | NUR ---
WOUND CARE CONSULT: REVIEWED CHART, NURSING DOCUMENTATION AND PHOTOS WHICH INDICATE RT EAR INTACT DEEP TISSUE INJURY AND SACRAL DEEP TISSUE INJURY IN EVOLUTION WITH DISCOLORATION TO BUTTOCKS. RECOMMENDATIONS MADE FOR SKIN PROTECTION AND WOUND CARE. DISCUSSED WITH NURSING STAFF. PT NOTED TO HAVE MULTIPLE CO-MORBIDITES INCLUDING COVID PNEUMONIA, RENAL FAILURE, RESPIRATORY FAILURE, ANEMIA, DIABETES, HISTORY OF ALZHEIMERS AND CVA. DUT TO MULTIPLE CO-MORBIDITIES, FURTHER SKIN BREAKDOWN MAY BE UNAVOIDABLE. PT IS ON BOAZ ISOFLEX LOW AIRLOSS BED. IN AGREEMENT WITH PLAN OF CARE.
[2020-10-07 08:37] LABS: ABG BASE EXCESS -3.5 mmol/L; ABG OXYGEN SATURATION 96.7 % (92.0-98.5); ABG PCO2 47.5 mmHg (35.0-45.0); ABG PO2 101.2 mmHg (75.0-100.0); AaDO2 419.3 mmHg; COHb 4.1 % (0.5-1.5); MetHb 0.3 % (0.0-1.5); O2Hb 92.4 % (94.0-97.0); SITE, ABG Right Radial
[2020-10-07] MEDS: Z GUARD REMEDY 2 OZ OINT TP SCH (09:07)
[2020-10-07] MEDS: LIPASE/PROTEASE/AMYLASE 1 EACH CAPSULE.DR PO SCH ×2 (09:07→12:36)
[2020-10-07] MEDS: TAMSULOSIN 0.4 MG CAP.SR.24H PO SCH (09:07)
[2020-10-07] MEDS: FAMOTIDINE (20 MG) 20 MG TABLET GT SCH (09:07)
[2020-10-07] MEDS: POLYETHYLENE GLYCOL 3350 17 GM POWD.PACK PO SCH (09:07)
[2020-10-07] MEDS: CYANOCOBALAMIN 500 MCG TABLET PO SCH (09:07)
[2020-10-07] MEDS: DOCUSATE SODIUM LIQ 100 MG/10 ML UDC NG SCH (10:05)
[2020-10-07] MEDS: NEPRO 1,000 ML BOTTLE GT PRN ×2 (12:34→12:36)
--- NOTE | 2020-10-07 14:09 | NUR ---
RN NOTE PT DNR STATUS. NOTED PT BECOMING BRADYCARDIC PROGRESSING TO ASYSTOLE. FOUND PT APNEIC, AREFLEXIVE, ASYSTOLIC. PRONOUNCED AT 1409. SON NOTIFIED BY PHONE. Yonas ABEL DNP NOTIFIED.
== END 2020-10-07 14:09 | disposition expired | DRG 870 ==
LOC: ER 02:54 → TRANSITION 09:39 → TELE1 18:30 → TELE-TD 09-22 01:03 → TELE1 09-22 01:06 → ICU 09-23 18:55
PROVIDERS: ADMIT Family Medicine; ATTEND Nurse Practitioner Acute Care
PROC: 0BH18EZ Insertion of Endotracheal Airway into Trachea, Via Natural or Artificial Opening Endoscopic (ICD-10-PCS; principal; 2020-09-24)
PROC: 5A1955Z Respiratory Ventilation, Greater than 96 Consecutive Hours (ICD-10-PCS; 2020-09-24)
PROC: 5A1D70Z Performance of Urinary Filtration, Intermittent, Less than 6 Hours Per Day (ICD-10-PCS; 2020-09-24)
PROC: 06HY33Z Insertion of Infusion Device into Lower Vein, Percutaneous Approach (ICD-10-PCS; 2020-09-24)
PROC: 30233N1 Transfusion of Nonautologous Red Blood Cells into Peripheral Vein, Percutaneous Approach (ICD-10-PCS; 2020-09-25)
PROC: 02HV33Z Insertion of Infusion Device into Superior Vena Cava, Percutaneous Approach (ICD-10-PCS; 2020-09-25)
PROC: B548ZZA Ultrasonography of Superior Vena Cava, Guidance (ICD-10-PCS; 2020-09-25)
PROC: 05HD33Z Insertion of Infusion Device into Right Cephalic Vein, Percutaneous Approach (ICD-10-PCS; 2020-10-06)
DX: A41.89 Other specified sepsis (principal); U07.1 COVID-19; N17.0 Acute kidney failure with tubular necrosis; J96.01 Acute respiratory failure with hypoxia; J12.89 Other viral pneumonia; I21.A1 Myocardial infarction type 2; E43 Unspecified severe protein-calorie malnutrition; G92 Toxic encephalopathy; J18.9 Pneumonia, unspecified organism; I13.0 Hypertensive heart and chronic kidney disease with heart failure and stage 1 through stage 4 chronic kidney disease, or unspecified chronic kidney disease; D68.59 Other primary thrombophilia; Z66 Do not resuscitate; Z51.5 Encounter for palliative care; G40.909 Epilepsy, unspecified, not intractable, without status epilepticus; N18.30 Chronic kidney disease, stage 3 unspecified; Z86.73 Personal history of transient ischemic attack (TIA), and cerebral infarction without residual deficits; G30.9 Alzheimer's disease, unspecified; F02.80 Dementia in other diseases classified elsewhere, unspecified severity, without behavioral disturbance, psychotic disturbance, mood disturbance, and anxiety; K21.9 Gastro-esophageal reflux disease without esophagitis; I25.2 Old myocardial infarction; N40.0 Benign prostatic hyperplasia without lower urinary tract symptoms; E78.5 Hyperlipidemia, unspecified; R26.9 Unspecified abnormalities of gait and mobility; D63.8 Anemia in other chronic diseases classified elsewhere; D69.6 Thrombocytopenia, unspecified; E11.22 Type 2 diabetes mellitus with diabetic chronic kidney disease; E11.65 Type 2 diabetes mellitus with hyperglycemia; E87.5 Hyperkalemia; Z79.4 Long term (current) use of insulin; Z99.2 Dependence on renal dialysis; M89.9 Disorder of bone, unspecified; E83.41 Hypermagnesemia; Z74.09 Other reduced mobility; Y95 Nosocomial condition; R65.20 Severe sepsis without septic shock
CPT/HCPCS: 31720; 36410; 36415; 36569; 36600; 71045-TC; 80048-TC; 80053-TC; 80061-TC; 80076-TC; 80202-TC; 81001; 82272-TC; 82550-TC; 82553; 82728-TC; 82803-TC; 82962-TC; 83540-TC; 83605-TC; 83615-TC; 83735-TC; 83880; 84100-TC; 84439-TC; 84443-TC; 84478-TC; 84484-TC; 85025-TC; 85027-TC; 85378-TC; 85385-TC; 85610-TC; 85730-TC; 86140-TC; 86706; 86850-TC; 87040-TC; 87070-TC; 87081-TC; 87086-TC; 87340; 90935-TC; 94003-TC; 94760-TC; 94762-TC; 94799-TC; A4216; A6403; C1750; C9113; C9803; G0378; J0330; J0456; J0692; J0696; J0885; J1100; J1644; J1815; J2060; J3370; J3490; J7030; J7040; J7050; J7060; P9016-BL; P9047; U0003